=== PATIENT | female | born 1960 | race Two or more races ===

== ENCOUNTER → 2020-05-19 | Emergency (ER) | payer MEDICAID, OTHER ==
[~2020-05-19] VITALS: Ht 175.3 cm; Wt 68.0 kg
[2020-05-19 21:00] VITALS: BP 172/97
[2020-05-19 21:30] LABS: Eosinophils # (auto) 0 10 ^3/uL (0-0.8); Eosinophils % (auto) 0.3 % (0.0-7.0); Hemoglobin 12.8 g/dL (12.2-16.2); Lymphocytes # (auto) 1.1 10 ^3/uL (0.4-5.4); Monocytes # (auto) 0.4 10 ^3/uL (0-1.3); Neutrophils # (auto) 3.8 10 ^3/uL (1.6-8.6)
[2020-05-19 21:32] LABS: Basophils # (auto) 0.1 10 ^3/uL (0-0.2); Hematocrit 39.3 % (36.0-46.0); Lymphocytes % (auto) 20.8 % (10.0-50.0); Mean Corpuscular Hgb Conc. 32.5 g/dL (32.0-36.0); Monocytes % (auto) 6.8 % (0.0-12.0); Neutrophils % (auto) 71.1 % (37.0-80.0); Platelet Count (auto) 167 10^3/uL (140-450); Red Blood Cells 4.91 10^6/uL (4.0-5.20); Red Cell Distribution Width 17.4 % (11.8-14.3); White Blood Cell 5.4 10^3/uL (4.4-10.8)
[2020-05-19 21:44] LABS: Albumin 3.7 g/dL (3.4-5.0); Anion Gap 7 (5-15); Blood Urea Nitrogen 18 mg/dL (7-18); Calcium 10.5 mg/dL (8.5-10.1); Carbon Dioxide 22 mmol/L (21-32); Chloride 111 mmol/L (98-107); Glucose 94 mg/dL (74-106); Magnesium 2.2 mg/dL (1.6-2.6); Potassium 3.6 mmol/L (3.5-5.1); Sodium 140 mmol/L (136-145)
[2020-05-19 21:50] LABS: Alanine Aminotransferase 16 U/L (13-56); Alkaline Phosphatase 101 U/L (45-117); Aspartate Aminotransferase 8 U/L (15-37); BUN/Creatinine Ratio 17.1; Bilirubin, Total 0.3 mg/dL (0.2-1.0); GFR African American 69 mL/min; GFR Non-African American 57 mL/min; Total Protein 7.1 g/dL (6.4-8.2)
[2020-05-19 21:54] LABS: INR 0.92 (0.9-1.15); Partial Thromboplastin Time 25.4 sec (23.0-31.2)
== END | disposition home or self-care (01) ==
LOC: ER 19:02
DX: J01.00 Acute maxillary sinusitis, unspecified (principal); F41.1 Generalized anxiety disorder; F43.0 Acute stress reaction; M25.572 Pain in left ankle and joints of left foot; Z20.828 Contact with and (suspected) exposure to other viral communicable diseases
CPT/HCPCS: 36415; 70450; 71045; 73610; 80053; 83605; 83735; 83880; 84443; 84484; 85025; 85379; 85610; 85730; 87426

== ENCOUNTER 2020-07-08 18:44 | Inpatient (IN) | payer MEDICAID ==
[~2020-07-08] VITALS: Ht 177.8 cm; Wt 77.5 kg
[2020-07-08 21:57] LABS: Basophils # (auto) 0 10 ^3/uL (0-0.2); Basophils % (auto) 0.1 % (0.0-2.0); Eosinophils # (auto) 0 10 ^3/uL (0-0.8); Lymphocytes # (auto) 0.3 10 ^3/uL (0.4-5.4); Mean Corpuscular Hemoglobin 27.1 pg (28.0-32.0)
[2020-07-08 21:59] LABS: Hemoglobin 19.5 g/dL (12.2-16.2); Lymphocytes % (auto) 1.2 % (10.0-50.0); Mean Corpuscular Hgb Conc. 32.1 g/dL (32.0-36.0); Mean Corpuscular Volume 84.3 fL (80.0-100.0); Monocytes # (auto) 1.2 10 ^3/uL (0-1.3); Monocytes % (auto) 5.2 % (0.0-12.0); Neutrophils # (auto) 21.5 10 ^3/uL (1.6-8.6); Neutrophils % (auto) 93.5 % (37.0-80.0); Nucleated Red Blood Cells % 1.3 %; Platelet Count (auto) 179 10^3/uL (140-450); Red Blood Cells 7.22 10^6/uL (4.0-5.20); Red Cell Distribution Width 18.3 % (11.8-14.3)
[2020-07-08] MEDS ORDERED: VANCOMYCIN 1GM/250ML 250 ML IV SCH (22:00)
[2020-07-08] MEDS ORDERED: SODIUM CHLORIDE 0.9% 2,500 ML IV ONE (22:00)
[2020-07-08] MEDS ORDERED: VANCOMYCIN 1GM/250ML 250 ML IV ONE (22:00)
[2020-07-08] MEDS ORDERED: PIPERACILLIN-TAZOB 3.375GM 100 ML IV ONE (22:00)
[2020-07-08 22:07] LABS: Hematocrit 60.9 % (36.0-46.0)
[2020-07-08 22:15] LABS: Albumin 4.1 g/dL (3.4-5.0)
[2020-07-08 22:17] LABS: Lactic Acid w/Reflex 4.4 mmol/L (0.4-2.0)
[2020-07-08 22:19] LABS: BUN/Creatinine Ratio 21.5; Total Protein 8.4 g/dL (6.4-8.2)
[2020-07-08 22:27] LABS: INR 1.12 (0.9-1.15); Partial Thromboplastin Time 24.8 sec (23.0-31.2)
[2020-07-08 22:28] LABS: Calcium 14.5 mg/dL (8.5-10.1); Potassium 2.8 mmol/L (3.5-5.1)
[2020-07-08] MEDS ORDERED: POTASSIUM CHL 20MEQ/100ML 100 ML IV ONE (22:45)
[2020-07-09] VITALS (56 sets, daily range): BP systolic 116–168; BP diastolic 60–132
[2020-07-09] MEDS ORDERED: PIPERACILLIN-TAZOB 3.375GM 100 ML IV SCH
[2020-07-09 00:15] LABS: Urine Bacteria FEW /hpf (None Seen); Urine Blood Negative /uL (Negative); Urine Specific Gravity 1.015 (1.001-1.035); Urine WBC 6 /hpf (0 - 5)
[2020-07-09 02:35] LABS: Amphetamine Screen, Urine NEGATIVE (NEGATIVE); Barbiturate Scree,Urine NEGATIVE (NEGATIVE); Benzodiazephine Screen, Urine NEGATIVE (NEGATIVE); Cannabinoid Screen, Urine NEGATIVE (NEGATIVE); Cocaine Screen, Urine NEGATIVE (NEGATIVE); Opiate Scree,Urine NEGATIVE (NEGATIVE); Phencyclidine Screen, Urine NEGATIVE (NEGATIVE)
[2020-07-09] MEDS ORDERED: D5W/SOD CHL 0.45%/KCL 20MEQ 1,000 ML IV SCH (03:45)
[2020-07-09] MEDS ORDERED: NITROGLYCERIN 0.4 MG SL TAB SL PRN (03:45)
[2020-07-09] MEDS ORDERED: MORPHINE SULF INJ 2 MG/ML SYRINGE 1ML IV PRN (03:45)
[2020-07-09] MEDS ORDERED: VANCOMYCIN PER PHARMACY 0 MG IV SCH (03:45)
[2020-07-09] MEDS ORDERED: SODIUM BICARBONATE 8.4 % INJ 50ML VIAL IV ONE (03:45)
[2020-07-09] MEDS ORDERED: PIPERACILLIN-TAZOB 2.25GM 50 ML IV SCH (06:00)
--- NOTE | 2020-07-09 06:20 | NUR ---
PATIENT BROUGHT TO ROOM 102 FROM ER. INDY RULE OUT. DIAGNOSIS: SEPSIS. AT HOME FAMILY NOTICED HER INCREASE IN ALOC, FATIGUE, POOR APPETITE. IN ER WAS HYPOTENSIVE. SEPSIS PROTOCOL INITIATED. BLOOD SUGAR 124 . JUST TOOK HER ACCUCHECK IT WAS 136. IMMEDIATELY UPON ARRIVAL IV LINES WERE READY TO DELIVER THE BICARB DRIP AT 100CC/HR. KCL REPLACEMENT 20 MEQ ALSO STARTED. NSR WITHOUT ECTOPY. PATIENT'S SPEECH IS GARBLED. UNABLE TO TELL ME HER NAME. CARLOS. DRY LIPS AND MOUTH. LUNGS CLEAR. ON 7L FACE MASK. EXTREMITIES ARE COOL. TEMP 97.6 AX. RIVERO. MRSA SWAB SENT.
[2020-07-09] MEDS: POTASSIUM CHL 20MEQ/100ML 100 ML IV SCH ×2 (06:30→09:34)
--- NOTE | 2020-07-09 06:50 | NUR ---
Respiratory note: HR 92, RR 26, SPO2 98% ON 7 L SIMPLE MASK. PT IS COMFORTABLY. NO SIGNS OR SYMPTOMS OF RESPIRATORY DISTRESS NOTED AT THIS TIME.
--- NOTE | 2020-07-09 07:25 | NUR ---
REPORT REPORT RECEIVED FROM JACQUELINE RN, CARE ASSUMED. PT AWAKE. STUFFED CASING TIER AT BEDSIDE FOR MORNING LABS. VS STABLE.
[2020-07-09] MEDS ORDERED: SODIUM BICARBONATE 50ML VIAL 50 ML in D5W/SOD CHL 0.45%/KCL 20MEQ 1,000 ML IV SCH (07:30)
[2020-07-09 08:00] LABS: Basophils # (auto) 0 10 ^3/uL (0-0.2); Eosinophils # (auto) 0 10 ^3/uL (0-0.8); Hemoglobin 16.7 g/dL (12.2-16.2); Lymphocytes # (auto) 0.3 10 ^3/uL (0.4-5.4)
--- NOTE | 2020-07-09 08:00 | NUR ---
COVID IN-HOUSE COVID SWAB OBTAINED AND WALKED TO LAB.
[2020-07-09 08:02] LABS: Basophils % (auto) 0.2 % (0.0-2.0); Hematocrit 52.2 % (36.0-46.0); Lymphocytes % (auto) 1.6 % (10.0-50.0); Mean Corpuscular Hemoglobin 27.2 pg (28.0-32.0); Mean Corpuscular Volume 85.1 fL (80.0-100.0); Monocytes # (auto) 0.8 10 ^3/uL (0-1.3); Monocytes % (auto) 4.5 % (0.0-12.0); Neutrophils # (auto) 16.9 10 ^3/uL (1.6-8.6); Neutrophils % (auto) 93.7 % (37.0-80.0); Nucleated Red Blood Cells % 0.1 %; Platelet Count (auto) 116 10^3/uL (140-450); Red Blood Cells 6.13 10^6/uL (4.0-5.20); Red Cell Distribution Width 18.4 % (11.8-14.3); White Blood Cell 18.1 10^3/uL (4.4-10.8)
--- NOTE | 2020-07-09 08:10 | NUR ---
OXYGENATION PATIENT MAINTAINING 100% OXYGEN SATURATION ON SIMPLE MASK 8L. PT PLACED ON 3L NASAL CANNULA. OXYGEN SATURATION MAINTAINING 100%. NO DISTRESS OR SHORTNESS OF BREATH NOTED.
[2020-07-09 08:17] LABS: Albumin 3.2 g/dL (3.4-5.0); Potassium 3.5 mmol/L (3.5-5.1)
[2020-07-09 08:22] LABS: BUN/Creatinine Ratio 22.4; Bilirubin, Total 0.9 mg/dL (0.2-1.0); Total Protein 6.1 g/dL (6.4-8.2)
[2020-07-09 08:25] LABS: Calcium 13.3 mg/dL (8.5-10.1)
[2020-07-09] MEDS ORDERED: HYDR-4296 PO (08:30)
[2020-07-09] MEDS ORDERED: NIFE1TAB30 PO (08:30)
[2020-07-09] MEDS ORDERED: ATOR40TA52 PO (08:30)
[2020-07-09] MEDS ORDERED: PANT1INJ3 IV (08:30)
[2020-07-09] MEDS ORDERED: CLOP75TA41 PO (08:30)
[2020-07-09] MEDS ORDERED: CINA30TA2 PO (08:30)
[2020-07-09] MEDS: metroNIDAZOLE 500MG/100ML 100 ML IV SCH ×3 (08:46→22:03)
--- NOTE | 2020-07-09 09:20 | NUR ---
MD VISIT DR.SANDHU FLORES AT BEDSIDE. MD REVIEWING LABS, IMAGING, AND MEDICAL RECORD.
[2020-07-09] MEDS: PIPERACILLIN-TAZOB 2.25GM 50 ML IV SCH ×3 (09:56→23:58)
[2020-07-09] MEDS ORDERED: CLOPIDOGREL BISULFATE 75 MG TAB PO SCH (10:00)
[2020-07-09] MEDS: NIFEdipine ER 30 MG TAB PO SCH (10:00)
[2020-07-09] MEDS ORDERED: CHOLECALCIFEROL (VITD3) 2,000 UNIT CAP PO SCH (10:00)
[2020-07-09] MEDS ORDERED: PANTOPRAZOLE 40 MG TAB PO SCH (10:00)
--- NOTE | 2020-07-09 10:40 | NUR ---
PO MEDICATIONS PATIENT WAS ABLE TO TO TOLERATE APPLE SAUCE AND WATER WITH SWALLOWING. PT REQUIRED A LOT OF INSTRUCTION TO SWALLOW MEDICATION. PT KEPT ATTEMPTING TO SPIT OUT APPLE SAUCE OR JUST LET IT SIT INSIDE HER MOUTH. EVENTUALLY SHE SWALLOWED CRUSHED MEDICATION. PROTONIX, NICARDIPINE, AND PLAVIX HELD AT THIS TIME DUE TO MEDICATION NOT BEING ABLE TO BE CRUSHED. PT CONTINUES TO HAVE GARBLED SPEECH THAT IS NOT CLEAR.
[2020-07-09] MEDS: hydrALAZINE HCL 25 MG TAB PO SCH (10:41)
[2020-07-09] MEDS: ASPirin 81 mg TAB PO SCH (10:41)
[2020-07-09] MEDS: HEPARIN SODIUM (PORCINE) 5000 UNITS/ML 1ML VIAL SC SCH ×2 (10:42→22:06)
--- NOTE | 2020-07-09 11:04 | NUR ---
ISOLATION REMOVED COVID SWAB RESULT NEGATIVE. ISOLATION REMOVED.
--- NOTE | 2020-07-09 11:28 | NUR ---
GI CONSULT DR.LIN FLORES AT BEDSIDE. ASSESSING PATIENT. NEW ORDERS RECEIVED.
[2020-07-09] MEDS ORDERED: PANTOPRAZOLE 40 MG/10 ML VIAL INJ IV ONE (11:30)
[2020-07-09] MEDS ORDERED: SOD CHL 0.45% 1,000 ML IV SCH (11:45)
[2020-07-09] MEDS ORDERED: D5W 5% 1,000 ML IV SCH ×2 (12:00)
--- NOTE | 2020-07-09 12:08 | NUR ---
NEPHROLOGY CONSULT SPOKE WITH ON THE PHONE REGARDING PATIENT STATUS, LABS, AND URINE OUTPUT. NEW ORDERS RECEIVED. LAB NOTIFIED OF LAB DRAW ORDERED. MD TO BE NOTIFIED IF URINE OUTPUT REMAINS LOW OVER THE NEXT HOUR.
[2020-07-09] MEDS: CALCITONIN 400unit/2ml Vial (200unit/ml) SC SCH ×2 (12:32→22:10)
--- NOTE | 2020-07-09 13:03 | NUR ---
CARDIOLOGY CONSULT ROUNDING ON PATIENT. MD AWARE OF EKG, LABS, AND IMAGINING. NEW ORDERS RECEIVED.
[2020-07-09 13:41] LABS: Basophils % (manual) 0 (0.0-2.0); Blast Cells 0; Eosinophils % (manual) 0 (0-7); Myelocytes % 0; Promyelocytes % 0; Reactive Lymphocytes 0
--- NOTE | 2020-07-09 13:49 | NUR ---
NEPHROLOGY PAGED PAGED REGARDING CONTINUED LOW URINE OUTPUT. GEORGE CATHETER MANUALLY FLUSHED TO ENSURE PATENCY. AWAITING CALL BACK FOR ORDERS.
[2020-07-09 13:57] LABS: BUN/Creatinine Ratio 21.8; Potassium 4.1 mmol/L (3.5-5.1)
[2020-07-09 13:59] LABS: Calcium 13.5 mg/dL (8.5-10.1)
--- NOTE | 2020-07-09 14:20 | NUR ---
NEPHRO UPDATE SPOKE WITH REGARDING NEW LABS AND URINE OUTPUT. NEW ORDERS RECEIVED FOR LASIX.
--- NOTE | 2020-07-09 14:25 | NUR ---
ONCOLOGY/HEMATOLOGY CONSULT KEVIN CUADRA CHEMICAL WASTE MANAGEMENT TECHNICIAN CONSULTING ON PATIENT. AWARE OF LABS, PAST MEDICAL HISTORY, AND MEDICATIONS. CHEMICAL WASTE MANAGEMENT TECHNICIAN AT BEDSIDE TO ASSESS PATIENT.
[2020-07-09] MEDS ORDERED: FUROSEMIDE 100 MG/10ML VIAL IV ONE (14:30)
--- NOTE | 2020-07-09 14:46 | NUR ---
SKIN DISCOLORATION MOTTLING/BLANCHING ON FEET AND TOES HAVE INCREASED. LOWER EXTREMITIES OFF LOADED ON PILLOWS. PT EDUCATED ON IMPORTANCE OF KEEPING EXTREMITIES ELEVATED AND PRESSURE DECREASED.
[2020-07-09 14:50] LABS: Band Neutrophils % (manual) 20; Lymphocytes % (manual) 1 (10.0-50.0); Metamyelocytes % 1; Monocytes % (manual) 1 (0-12)
--- NOTE | 2020-07-09 15:22 | NUR ---
NEUROLOGY CONSULT ASSESSING PATIENT AT BEDSIDE.
--- NOTE | 2020-07-09 15:40 | NUR ---
LOW URINE OUTPUT DESPITE ADMINISTRATION OF LASIX IV, PATIENT HAS NOT HAD AN INCREASE IN URINE OUTPUT. MANUAL IRRIGATION PERFORMED, GEORGE PATENT, NO SEDIMENT NOTED. ASSESSED PROPER POSITIONING OF GEORGE. SMALL AMOUNT OF URINE LEAKING AROUND GEORGE WHEN TRYING TO ADVANCE. PATIENT COMPLAINS OF DISCOMFORT UPON PALPATION OF PELVIC REGION. OLD GEORGE REMOVED, TIP INTACT NOT OCCLUDED. NEW 16 NEPALI GEORGE PLACED WITH CLEAN STERILE TECHNIQUE. PT TOLERATED WELL. NO URINE OUTPUT NOTED. MANUAL FLUSH PERFORMED. PATENT, PT DENIES DISCOMFORT. BLADDER SCANNER PERFORMED. NO VOLUME DETECTED.
[2020-07-09 15:57] LABS: Platelet Count (auto) 113 10^3/uL (140-450)
--- NOTE | 2020-07-09 16:00 | NUR ---
WOUND PHOTO'S PHOTOGRAPHS TAKEN OF SKIN DISCOLORATION.
--- NOTE | 2020-07-09 17:06 | NUR ---
NEPHROLOGY UPDATE NOTIFIED OF LOW URINE OUTPUT. NEW ORDERS RECEIVED. MD REQUESTING OR OTHER AVAILABLE MD TO PLACE DIALYSIS CATHETER.
--- NOTE | 2020-07-09 17:18 | NUR ---
CONSENT DIALYSIS CATHETER PLACEMENT CONSENT OBTAINED FROM SON. PLACED IN CHART.
--- NOTE | 2020-07-09 17:37 | NUR ---
IV INSERTION IV access obtained, via clean sterile technique by inserting 20 gauge catheter at right forearm after 1 attempt. IV secured properly. No trauma to site. Patient tolerated well.
[2020-07-09] MEDS: FUROSEMIDE INJECTION 100 MG in D5W 5% 100 ML IV SCH (17:44)
[2020-07-09] MEDS: D5W/SOD CHL 0.45% 1,000 ML IV SCH (17:44)
[2020-07-09 18:47] LABS: Calcium 12.8 mg/dL (8.5-10.1); Magnesium 2.7 mg/dL (1.6-2.6)
[2020-07-09 18:49] LABS: Phosphorus 3.4 mg/dL (2.5-4.90)
[2020-07-09 18:52] LABS: Lactic Acid w/Reflex 2.4 mmol/L (0.4-2.0)
--- NOTE | 2020-07-09 19:39 | NUR ---
REPORT REPORT GIVEN TO DIONY MONCADA, CARE ENDORSED. VS STABLE. PT RESTING WITH CALL LIGHT WITHIN REACH.
--- NOTE | 2020-07-09 20:56 | NUR ---
PT HAD EPISODE OF VOMITING. PLACED PT IN HIGH FOWLERS AND SUCTIONED MODERATE AMOUNT OF BILE CONTENTS FROM MOUTH. NO S/S OF ASPIRATION PRESENT- LUNGS ARE CLEAR TO AUSCULTATION AND VSS.
--- NOTE | 2020-07-09 21:30 | NUR ---
MD CALL MD PAGED TO MAKE HIM AWARE OF PTS INCREASED HR, AND S/S OF PAIN PRESENT- PT GROANS, GUARDS ABDOMEN, AND THOUGH SHE IS STILL ALTERED, DOES SAY "YES" WHEN ASKED IF SHE IS HAVING ANY PAIN. AWAITING CALLBACK. PT REPOSITIONED FOR COMFORT WITH PILLOWS AND ALL EXTREMITIES OFFLOADED WITH PILLOWS.
--- NOTE | 2020-07-09 21:36 | NUR ---
RETURNED CALL. NEW ORDERS RECEIVED. WILL PLACE AND ADMINISTER.
[2020-07-09] MEDS: ATORVASTATIN 20 MG TAB PO SCH (22:00)
[2020-07-09] MEDS ORDERED: PANTOPRAZOLE 40 MG/10 ML VIAL INJ IV SCH (22:00)
[2020-07-09] MEDS: PANTOPRAZOLE 40 MG/10 ML VIAL INJ IV SCH (22:03)
[2020-07-09] MEDS ORDERED: ACETAMINOPHEN 650 MG RECT SUPP PR ONE (22:14)
[2020-07-09] MEDS: ACETAMINOPHEN 325 MG RECT SUPP PR PRN (22:26)
[2020-07-10] VITALS (74 sets, daily range): BP systolic 90–160; BP diastolic 64–121
[2020-07-10] MEDS: D5W/SOD CHL 0.45% 1,000 ML IV SCH ×4 (01:05→20:49)
[2020-07-10] MEDS: FUROSEMIDE INJECTION 100 MG in D5W 5% 100 ML IV SCH (01:06)
--- NOTE | 2020-07-10 03:32 | NUR ---
PT CARE GAVE PT CHG BATH AND PARTIAL ROC CHANGE. ANA MARIA CARE DONE. PT TURNED AND REPOSITIONED FOR COMFORT.
[2020-07-10 04:05] LABS: Basophils # (auto) 0 10 ^3/uL (0-0.2); Eosinophils # (auto) 0 10 ^3/uL (0-0.8); Hematocrit 43.4 % (36.0-46.0); Hemoglobin 14.6 g/dL (12.2-16.2); Lymphocytes # (auto) 0.2 10 ^3/uL (0.4-5.4); Lymphocytes % (auto) 1.8 % (10.0-50.0); Mean Corpuscular Hemoglobin 27.9 pg (28.0-32.0); Mean Corpuscular Hgb Conc. 33.6 g/dL (32.0-36.0); Mean Corpuscular Volume 83.2 fL (80.0-100.0); Monocytes # (auto) 0.5 10 ^3/uL (0-1.3); Monocytes % (auto) 3.9 % (0.0-12.0); Neutrophils # (auto) 12.7 10 ^3/uL (1.6-8.6); Neutrophils % (auto) 94.3 % (37.0-80.0); Platelet Count (auto) 88 10^3/uL (140-450); Red Blood Cells 5.22 10^6/uL (4.0-5.20); Red Cell Distribution Width 18.5 % (11.8-14.3); White Blood Cell 13.5 10^3/uL (4.4-10.8)
[2020-07-10 04:20] LABS: Albumin 2.5 g/dL (3.4-5.0); Calcium 12.2 mg/dL (8.5-10.1); Potassium 3.6 mmol/L (3.5-5.1)
[2020-07-10 04:23] LABS: BUN/Creatinine Ratio 21.4; Bilirubin, Total 0.7 mg/dL (0.2-1.0); Total Protein 5.7 g/dL (6.4-8.2)
[2020-07-10] MEDS: metroNIDAZOLE 500MG/100ML 100 ML IV SCH ×3 (05:28→17:36)
--- NOTE | 2020-07-10 06:19 | NUR ---
URINE OUTPUT PT HAD A TOTAL OF 675 ML OF URINE OUT OF GEORGE CATHETER THIS SHIFT. HOURLY OUTPUTS ARE DOCUMENTED IN INTAKE AND OUTPUT INTERVENTION. MD PEREZ PLACED COMMUNICATION ORDER STATING TO DISCONTINUE LASIX GTT IF UO INCREASES ABOVE 75 ML/HR. WILL HOLD LASIX GTT FOR INCREASING UO.
[2020-07-10] MEDS: PIPERACILLIN-TAZOB 2.25GM 50 ML IV SCH ×3 (06:29→21:58)
[2020-07-10] MEDS ORDERED: FUROSEMIDE 100 MG/10ML VIAL IV ONE (07:00)
--- NOTE | 2020-07-10 07:00 | NUR ---
Opening note assumed care of patient at this time. Report received from rn shift mgr RN. POC reviewed. Head to toe assessment complete, see intervention spreadsheet for complete details. Received pt awake, responsive to voice. PT does not respond appropriately. PT complaining of pain but cannot specify where or how much. Pt does not follow commands or track properly. IV site is CDI, crain draining to gravity. Bed locked and in lowest position, safety precautions in place. Call light within reach. Will monitor pt carefully.
[2020-07-10] MEDS: ACETAMINOPHEN 325 MG RECT SUPP PR PRN (08:24)
--- NOTE | 2020-07-10 08:29 | NUR ---
Pain Tylenol suppository given for pain. Pt verbalized pain, will assess for pt outcomes.
--- NOTE | 2020-07-10 09:26 | NUR ---
EEG sr technical sales consultant at bedside, attempt to do EEG at this time.
[2020-07-10 09:30] LABS: Folate (Folic Acid) 6.36 ng/mL (5.38-24)
--- NOTE | 2020-07-10 09:46 | NUR ---
Dr stahl Notified of MD order for dialysis catheter placement. Spoke with Michelle in Er.
[2020-07-10] MEDS: ASPirin 81 mg TAB PO SCH (10:00)
[2020-07-10] MEDS: NIFEdipine ER 30 MG TAB PO SCH (10:00)
[2020-07-10] MEDS: hydrALAZINE HCL 25 MG TAB PO SCH (10:00)
[2020-07-10] MEDS: HEPARIN SODIUM (PORCINE) 5000 UNITS/ML 1ML VIAL SC SCH ×2 (10:00→21:50)
[2020-07-10] MEDS: PANTOPRAZOLE 40 MG/10 ML VIAL INJ IV SCH ×2 (10:23→21:58)
--- NOTE | 2020-07-10 10:26 | NUR ---
EEG-ELECTROENCEPHALOGRAM COMPLETED AT BEDSIDE @ 10:14. RN AWARE.
--- NOTE | 2020-07-10 10:34 | NUR ---
at bedside Dr Ames at bedside to assess pt. See md note.
[2020-07-10] MEDS ORDERED: SODIUM CHL 0.9% 1000 ML BAG XX ONE (11:15)
[2020-07-10] MEDS ORDERED: HEPARIN SODIUM (PORCINE) 5000 UNITS/ML 1ML VIAL IV ONE (11:15)
[2020-07-10] MEDS: CALCITONIN 400unit/2ml Vial (200unit/ml) SC SCH ×3 (11:40→22:45)
--- NOTE | 2020-07-10 11:53 | NUR ---
Dr. nSow at bedside for dialysis catheter placement. american history professor at bedside
[2020-07-10] MEDS ORDERED: ALBUMIN 5% 250 ML IV ONE (12:15)
[2020-07-10] MEDS ORDERED: SODIUM CHLORIDE 0.9% 1,000 ML IV ONE (12:15)
--- NOTE | 2020-07-10 12:55 | NUR ---
Oxygen Pt oxygen decreased while receiving dialysis. Pt placed on 2lts NC. saturation came up from 88% to 98% at this time. Will continue to monitor closely.
[2020-07-10 16:27] LABS: BUN/Creatinine Ratio 20.8; Calcium 10.4 mg/dL (8.5-10.1); Potassium 3.1 mmol/L (3.5-5.1)
--- NOTE | 2020-07-10 16:32 | NUR ---
at bedside Dr Segundo at bedside. Orders received for PICC line placement for TPN. Will obtain consent and notify PICC line RN.
--- NOTE | 2020-07-10 16:36 | NUR ---
Consent Call placed to patient's son Remus to obtain consent. No answer at this time. No voicemail box available. WIll try again.
[2020-07-10 17:37] LABS: Hepatitis A Ab IgM Negative; Hepatitis B Core IgM Negative; Hepatitis B Surface Antigen Negative (Negative); Hepatitis C Antibody Negative (Negative)
--- NOTE | 2020-07-10 19:22 | NUR ---
Diet tolerance Pt having hard time eating served trays. Pt has full upper dentures. Pt offered jello d/t observed difficulty with eating. PT ate jello and tolerated well. Addendum: 07/10/20 at 2055 by DIONY TIDWELL RN THIS PT REMAINS NPO FOR SAFETY. POSSIBLE PREVIOUS RN CHARTED ON WRONG PT.
[2020-07-10] MEDS ORDERED: VANCOMYCIN 1GM/250ML 250 ML IV ONE (20:00)
--- NOTE | 2020-07-10 20:21 | NUR ---
PTS BOYFRIEND, CLEOPATRA MIMS, CALLED UNIT. UNABLE TO GIVE PT INFORMATION DUE TO HIM NOT HAVING PASSWORD. ENCOURAGED HIM TO SPEAK WITH REMUS, PTS SON FOR MORE INFORMATION AND TO CALLBACK WITH PASSWORD IF HE HAS ANY QUESTIONS/CONCERNS.
[2020-07-10] MEDS: ATORVASTATIN 20 MG TAB PO SCH (21:58)
--- NOTE | 2020-07-10 22:02 | NUR ---
CALLED PHARMACY TO REQUEST PTS LAST DOSE OF CALCITONIN, IT WAS NOT IN THE REFRIGERATOR. AWAITING MEDICATION.
--- NOTE | 2020-07-10 23:34 | NUR ---
CALCITONIN NON ADMIN PHARMACY DID NOT SEND MEDICATION. WILL MAKE MD AWARE
[2020-07-11] VITALS (22 sets, daily range): BP systolic 89–113; BP diastolic 57–85
[2020-07-11] MEDS: metroNIDAZOLE 500MG/100ML 100 ML IV SCH ×3 (01:16→16:45)
[2020-07-11 03:36] LABS: Basophils # (auto) 0 10 ^3/uL (0-0.2); Eosinophils # (auto) 0 10 ^3/uL (0-0.8); Hematocrit 38.5 % (36.0-46.0); Hemoglobin 13.1 g/dL (12.2-16.2); Lymphocytes # (auto) 0.4 10 ^3/uL (0.4-5.4); Mean Corpuscular Hemoglobin 27.9 pg (28.0-32.0); Mean Corpuscular Hgb Conc. 33.9 g/dL (32.0-36.0); Mean Corpuscular Volume 82.1 fL (80.0-100.0); Monocytes # (auto) 0.4 10 ^3/uL (0-1.3); Monocytes % (auto) 3.9 % (0.0-12.0); Neutrophils # (auto) 9.1 10 ^3/uL (1.6-8.6); Neutrophils % (auto) 92.1 % (37.0-80.0); Nucleated Red Blood Cells % 0.1 %; Platelet Count (auto) 75 10^3/uL (140-450); Red Blood Cells 4.69 10^6/uL (4.0-5.20); Red Cell Distribution Width 18.2 % (11.8-14.3); White Blood Cell 9.9 10^3/uL (4.4-10.8)
[2020-07-11 03:53] LABS: INR 1.09 (0.9-1.15); Partial Thromboplastin Time 33.4 sec (23.0-31.2)
[2020-07-11 03:56] LABS: Albumin 2.1 g/dL (3.4-5.0); Calcium 10.1 mg/dL (8.5-10.1)
[2020-07-11 03:59] LABS: BUN/Creatinine Ratio 21.1; Bilirubin, Total 0.7 mg/dL (0.2-1.0); Lactic Acid w/Reflex 2.2 mmol/L (0.4-2.0); Total Protein 5.3 g/dL (6.4-8.2)
[2020-07-11 04:05] LABS: Potassium 2.7 mmol/L (3.5-5.1)
[2020-07-11] MEDS: D5W/SOD CHL 0.45% 1,000 ML IV SCH ×3 (04:06→20:00)
--- NOTE | 2020-07-11 05:16 | NUR ---
NEPHROLOGY PAGED FOR CRITICAL POTASSIUM OF 2.7. AWAITING CALLBACK.
[2020-07-11] MEDS: PIPERACILLIN-TAZOB 2.25GM 50 ML IV SCH ×2 (05:39→14:03)
--- NOTE | 2020-07-11 06:21 | NUR ---
ATTEMPTED TO CALL KARY RIOS AT PHONE NUMBER [phone]. NO EXTRACTOR PULLER AND NO VOICEMAIL SET UP TO LEAVE MESSAGE. Addendum: 07/11/20 at 0640 by DIONY TIDWELL RN ATTEMPTED TO CALL TO GET CONSENT FOR PICC LINE PLACEMENT
--- NOTE | 2020-07-11 06:26 | NUR ---
ERROL BRIGHT. STILL AWAITING CALLBACK.
[2020-07-11 08:06] LABS: Immunoglobulin G, Serum 880 mg/dL (586-1602)
[2020-07-11] MEDS: POTASSIUM CHL 20MEQ/100ML 100 ML IV SCH ×2 (08:14→10:35)
[2020-07-11] MEDS ORDERED: LORazepam 2MG/ML-1ML VIAL IV PRN (08:15)
--- NOTE | 2020-07-11 08:52 | NUR ---
PICC AND MRI CONSENT OBTAINED FROM SON KARY SAGE AND CONFIRMED WITH CORAL BROOKS. ALL QUESTIONS AND CONCERNS ADDRESSED AT THIS TIME
--- NOTE | 2020-07-11 09:21 | NUR ---
DR. OCONNOR AT BEDSIDE
[2020-07-11] MEDS: PANTOPRAZOLE 40 MG/10 ML VIAL INJ IV SCH ×2 (09:27→22:32)
[2020-07-11] MEDS: ASPirin 81 mg TAB PO SCH (09:27)
[2020-07-11] MEDS: hydrALAZINE HCL 25 MG TAB PO SCH (09:27)
[2020-07-11] MEDS: NIFEdipine ER 30 MG TAB PO SCH (09:28)
[2020-07-11] MEDS: HEPARIN SODIUM (PORCINE) 5000 UNITS/ML 1ML VIAL SC SCH ×2 (10:00→22:00)
--- NOTE | 2020-07-11 10:44 | NUR ---
DR. PEREZ AT BEDSIDE
--- NOTE | 2020-07-11 10:54 | NUR ---
SWALLOW EVALUATED. PATIENT HAS NATURAL TEETH. ABLE TO FOLLOW ONE STEP COMMANDS. NURSING REPORTS COUGHING ON THIN LIQUIDS. PATIENT ABLE TO TOLERATE PUREE DIET TEXTURE WITH NECTAR THICKENED LIQUIDS WITH NO OVERT SIGNS OR SYMPTOMS OF ASPIRATION. NURSING NOTIFIED.
--- NOTE | 2020-07-11 11:11 | NUR ---
PICC NURSE AT BEDSIDE
--- NOTE | 2020-07-11 11:28 | NUR ---
DR. MARX PAGED AWAITING CALLBACK
--- NOTE | 2020-07-11 11:51 | NUR ---
BRAIN MRI ON HOLD DUE TO ARTIFACT THAT WILL OCCUR WITH THE DIALYSIS CATHETER IN PLACE. DR. MARX AWARE
--- NOTE | 2020-07-11 12:07 | NUR ---
PICC line placement Patient SON educated on need for PICC line placement. All risks and benefits explained and all questions and concerns addressed prior to procedure. Noted past medical history and allergies with no contraindications. INR and Plt counts within acceptable range. 5 fr PICC line inserted via RIGHT BASILIC vein using [employer] US and Tip Location System. Sterile technique with maximum barrier precautions utilized. Blood return obtained from each of THE THREE lumens and each flushed easily with NS using proper technique. PICC secured with Stat-lock; biodisc and occlusive dressing applied. Stat portable chest x-ray obtained for PICC tip placement. PRIMARY RN MELINDA NOTIFIED OF PLACEMENT. *Baseline Arm Circumference 26 CM INTERNAL LENGTH 40 CM EXTERNAL LENGTH 0 CM PICC lot # [id number]
--- NOTE | 2020-07-11 12:14 | NUR ---
OK to use PICC line Xray completed. OK to use PICC line. PRIMARY RN MELINDA NOTIFIED.
[2020-07-11] MEDS ORDERED: LIDOCAINE 1% (LOCAL ANESTH.) PF 5ml SDV ID ONE (12:15)
--- NOTE | 2020-07-11 15:01 | NUR ---
HEPARIN HELD PER DR. BHATIA, CHECK CBC TOMORROW AND CHANGE IN ANTIBIOTIC THERAPY.
[2020-07-11] MEDS: cefTRIAXone 1GM/50ML D5W 50 ML IV SCH (15:23)
--- NOTE | 2020-07-11 15:23 | NUR ---
ECHO AT BEDSIDE
[2020-07-11] MEDS ORDERED: TPN PER PHARMACY 0 ML IV SCH (16:30)
--- NOTE | 2020-07-11 16:37 | NUR ---
PATIENT TAKEN TO NUCLEAR MEDICINE BY TOM BAILEY RN VIA ACLS GUIDELINES
[2020-07-11] MEDS ORDERED: D5W/SOD CHL 0.45% 1,000 ML IV SCH (16:45)
[2020-07-11] MEDS ORDERED: CYANOCOBALAMIN (B-12) 1000 MCG/1 ML VIAL IM ONE (17:00)
--- NOTE | 2020-07-11 19:30 | NUR ---
Opening Shift note Received report from day shift RN Umair. Pt brought in by EMS on 07/08 due to ALOC and poor appetite. Per reports, pt is talkative at baseline but has been progressively unverbal the past few days before she was brought into the hospital. Pt was diagnosed with sepsis and admitted to the ICU. Pertinent PMH includes MS, Stroke (8 months ago), HTN, DM, hyperparathyroid. Pt's head CT on 07/08 showed "chronic lacunar infarcts right basal ganglia and right paracentral posterior midbrain". Currently, patient is AAOx1. Could not assess orientation further due to the patients speech being slurred and unclear. Pt is able to verbalize yes, no, and okay. Pt has a crain that is patent, hung below the level of the bladder, and draining clear yellow urine. Right IJ Loc dressing is clean and intact. Pt oriented to staff and POC. Bed is locked at lowest position, side rails are up, call light placed within reach. No s/s of distress noted at this time, VSS. Pt denies any pain. Will continue to monitor.
--- NOTE | 2020-07-11 19:40 | NUR ---
Pt taken to Nuclear Medicine Folloing ACLS guidelines by primary CORAL Singh & assistant professor of communicationCORAL Solares.
[2020-07-11] MEDS ORDERED: CLINIMIX PER PHARMACY IV SCH (20:00)
--- NOTE | 2020-07-11 20:41 | NUR ---
Pt back from Nuclear Medicine Pt tolerated well, pt connected to ICU bedside monitor, all VSS. Will continue to monitor.
--- NOTE | 2020-07-11 22:00 | NUR ---
Cooling measures started Pt's temperature is 99.7, cooling measures started. Will continue to monitor.
[2020-07-11] MEDS ORDERED: ACETAMINOPHEN 650 MG RECT SUPP PR ONE (22:09)
[2020-07-11] MEDS: SODIUM CHLOR 0.9% PF (SALINE LOCK) 10ML VIAL/SYR IV SCH (22:32)
[2020-07-11] MEDS: ATORVASTATIN 20 MG TAB PO SCH (22:32)
[2020-07-11] MEDS: ACETAMINOPHEN 325 MG RECT SUPP PR PRN (22:33)
[2020-07-12] VITALS (10 sets, daily range): BP systolic 91–133; BP diastolic 63–81
[2020-07-12] MEDS: metroNIDAZOLE 500MG/100ML 100 ML IV SCH ×3 (01:03→16:43)
--- NOTE | 2020-07-12 02:55 | NUR ---
Report given to Neyda MONCADA All questions and concerns addressed.
--- NOTE | 2020-07-12 03:02 | NUR ---
ICU patient trans to floor SBAR given to Neyda MONCADA. JENNIFER ESTEBAN transfered to 218b via hospital bed on milk truck driver by elijah MONCADA. All patient's personal belongings transfered with patient to receiving floor. Patient care transfered to Neyda MONCADA
--- NOTE | 2020-07-12 03:10 | NUR ---
RECEIVED PT. FROM ICU, AWAKE, ORIENTED X1, V/S STABLE, TO CONTINUE PT. CARE.
[2020-07-12 06:49] LABS: Basophils # (auto) 0 10 ^3/uL (0-0.2); Eosinophils # (auto) 0 10 ^3/uL (0-0.8); Hematocrit 41.1 % (36.0-46.0); Hemoglobin 13.6 g/dL (12.2-16.2); Lymphocytes # (auto) 0.3 10 ^3/uL (0.4-5.4); Lymphocytes % (auto) 4.1 % (10.0-50.0); Mean Corpuscular Hemoglobin 27.4 pg (28.0-32.0); Mean Corpuscular Hgb Conc. 33.1 g/dL (32.0-36.0); Mean Corpuscular Volume 82.9 fL (80.0-100.0); Monocytes # (auto) 0.4 10 ^3/uL (0-1.3); Monocytes % (auto) 4.8 % (0.0-12.0); Neutrophils # (auto) 7.1 10 ^3/uL (1.6-8.6); Neutrophils % (auto) 91.1 % (37.0-80.0); Nucleated Red Blood Cells % 0.1 %; Platelet Count (auto) 83 10^3/uL (140-450); Red Blood Cells 4.95 10^6/uL (4.0-5.20); Red Cell Distribution Width 18.5 % (11.8-14.3); White Blood Cell 7.8 10^3/uL (4.4-10.8)
[2020-07-12] MEDS ORDERED: SODIUM CHL 0.9% 1000 ML BAG XX ONE (07:00)
--- NOTE | 2020-07-12 07:10 | NUR ---
OPENING SHIFT NOTE Assumed care of patient from social service agency director RN. Patient is alert and oriented x2, patient was reoriented to place and situation, no signs of distress noted, patient denies pain. She was updated on the plan of care and verbalized understanding. She has a crain placed, draining clear yellow urine to gravity, no kinks and tubing noted. Bed is locked, in the lowest position, side rails are up x2 and call light is in reach. Patient was encouraged to call for assistance as needed.
[2020-07-12 07:11] LABS: Albumin 2.1 g/dL (3.4-5.0); BUN/Creatinine Ratio 26.1; Bilirubin, Total 0.6 mg/dL (0.2-1.0); Calcium 10.2 mg/dL (8.5-10.1); Magnesium 1.7 mg/dL (1.6-2.6); Phosphorus 2.6 mg/dL (2.5-4.90); Total Protein 5.4 g/dL (6.4-8.2)
[2020-07-12 07:13] LABS: % Iron Saturation 53.2 % (15-50)
[2020-07-12 07:44] LABS: Potassium 2.7 mmol/L (3.5-5.1)
--- NOTE | 2020-07-12 07:46 | NUR ---
POTASSIUM 2.7 Ratna made aware, New orders received for K Missael 40meq IV. Orders read back and verified.
[2020-07-12] MEDS: POTASSIUM CHL 20MEQ/100ML 100 ML IV SCH ×2 (08:12→10:42)
[2020-07-12] MEDS: cefTRIAXone 1GM/50ML D5W 50 ML IV SCH (08:34)
--- NOTE | 2020-07-12 09:13 | NUR ---
PATIENT TAKEN TO CT accompanied by tech, no signs of distress noted.
--- NOTE | 2020-07-12 09:24 | NUR ---
PATIENT BACK FROM CT no signs of distress.
--- NOTE | 2020-07-12 09:28 | NUR ---
ANASTASIA AT BEDSIDE Updated on the patient status, Patient was updated on the plan of care and verbalized understanding. New orders for stool sample.
[2020-07-12 09:29] LABS: Pre Albumin 14.8 mg/dL (20.0-40.0)
[2020-07-12] MEDS: SODIUM CHLOR 0.9% PF (SALINE LOCK) 10ML VIAL/SYR IV SCH ×2 (09:56→21:42)
[2020-07-12] MEDS: PANTOPRAZOLE 40 MG/10 ML VIAL INJ IV SCH ×2 (09:56→21:42)
[2020-07-12] MEDS: ASPirin 81 mg TAB PO SCH (09:56)
[2020-07-12] MEDS: NIFEdipine ER 30 MG TAB PO SCH (09:57)
[2020-07-12] MEDS: CYANOCOBALAMIN 500 MCG TAB PO SCH (09:57)
[2020-07-12] MEDS: hydrALAZINE HCL 25 MG TAB PO SCH (09:57)
[2020-07-12] MEDS: HEPARIN SODIUM (PORCINE) 5000 UNITS/ML 1ML VIAL SC SCH ×2 (09:58→21:43)
[2020-07-12] MEDS: D5W/SOD CHL 0.45% 1,000 ML IV SCH (11:24)
[2020-07-12] MEDS ORDERED: DEXTROSE (50%) 50ML SYRG IV SCH (12:00)
[2020-07-12] MEDS: ACCU-CHEK COMFORT CURVE STRIP VI SCH ×3 (12:01→23:20)
[2020-07-12] MEDS: InsuLIN REG 1unit/0.01ml Soln (100units/ml) SC SCH ×3 (12:09→23:19)
--- NOTE | 2020-07-12 15:53 | NUR ---
Nutrition Assessment/Consult Notes Please refer to link for full assessment notes. Est Energy needs: 3059-4889 kcals (20-23 kcal/kgBW) Est Protein needs: 64-72 gms/day (0.8-0.9 gm/kgBW) Will continue to monitor and reassess prn. Addendum: 07/12/20 at [address] Amended: Links added.
[2020-07-12] MEDS: ACETAMINOPHEN 325 MG RECT SUPP PR PRN (16:12)
--- NOTE | 2020-07-12 19:30 | NUR ---
assumed care, pt. awake, oriented to self, not in distress.
[2020-07-12] MEDS ORDERED: TPN PER PHARMACY IV NR ×8 (20:00)
[2020-07-12] MEDS: ATORVASTATIN 20 MG TAB PO SCH (21:42)
[2020-07-13] MEDS: metroNIDAZOLE 500MG/100ML 100 ML IV SCH ×3 (00:36→17:27)
[2020-07-13] MEDS: D5W/SOD CHL 0.45% 1,000 ML IV SCH (02:48)
[2020-07-13 05:00] VITALS: BP 115/71
[2020-07-13] MEDS: InsuLIN REG 1unit/0.01ml Soln (100units/ml) SC SCH ×3 (06:00→17:44)
[2020-07-13] MEDS: ACCU-CHEK COMFORT CURVE STRIP VI SCH ×3 (06:04→17:27)
[2020-07-13 06:49] LABS: Basophils # (auto) 0 10 ^3/uL (0-0.2); Eosinophils # (auto) 0 10 ^3/uL (0-0.8); Eosinophils % (auto) 0.1 % (0.0-7.0); Hematocrit 38.8 % (36.0-46.0); Lymphocytes # (auto) 0.4 10 ^3/uL (0.4-5.4); Lymphocytes % (auto) 6.1 % (10.0-50.0); Mean Corpuscular Hemoglobin 27.9 pg (28.0-32.0); Mean Corpuscular Hgb Conc. 33.6 g/dL (32.0-36.0); Mean Corpuscular Volume 83.2 fL (80.0-100.0); Monocytes # (auto) 0.5 10 ^3/uL (0-1.3); Neutrophils # (auto) 5.2 10 ^3/uL (1.6-8.6); Neutrophils % (auto) 85.8 % (37.0-80.0); Nucleated Red Blood Cells % 0.1 %; Platelet Count (auto) 78 10^3/uL (140-450); Red Blood Cells 4.67 10^6/uL (4.0-5.20); Red Cell Distribution Width 18.3 % (11.8-14.3); White Blood Cell 6.1 10^3/uL (4.4-10.8)
[2020-07-13 06:57] LABS: BUN/Creatinine Ratio 31.6; Calcium 10.5 mg/dL (8.5-10.1); Magnesium 1.8 mg/dL (1.6-2.6)
[2020-07-13 07:00] LABS: Bilirubin, Total 0.4 mg/dL (0.2-1.0); Phosphorus 2.4 mg/dL (2.5-4.90); Total Protein 5.5 g/dL (6.4-8.2)
--- NOTE | 2020-07-13 07:30 | NUR ---
Opening Shift Note Assumed patient care from NOC RN. Patient currently supine in bed, no signs of distress at this time. Respirations even and unlabored. Safety precautions in place, call light within reach. Will continue to monitor q1hr and PRN.
[2020-07-13 07:36] LABS: Potassium 2.8 mmol/L (3.5-5.1)
--- NOTE | 2020-07-13 07:47 | NUR ---
Left message with Dr. Segundo regarding critical lab value.
--- NOTE | 2020-07-13 07:58 | NUR ---
-Dr. Segundo New orders received.
--- NOTE | 2020-07-13 09:30 | NUR ---
at Station Dr. Davis at station discussing patient's plan of care.
[2020-07-13 09:32] VITALS: BP 140/77
[2020-07-13] MEDS: CYANOCOBALAMIN 500 MCG TAB PO SCH (10:00)
[2020-07-13] MEDS: HEPARIN SODIUM (PORCINE) 5000 UNITS/ML 1ML VIAL SC SCH ×2 (10:00→22:00)
[2020-07-13] MEDS: ASPirin 81 mg TAB PO SCH (10:00)
[2020-07-13] MEDS: NIFEdipine ER 30 MG TAB PO SCH (10:00)
[2020-07-13] MEDS: POTASSIUM CHL 20MEQ/100ML 100 ML IV SCH ×3 (10:05→13:50)
[2020-07-13] MEDS: hydrALAZINE HCL 25 MG TAB PO SCH (10:07)
[2020-07-13] MEDS: PANTOPRAZOLE 40 MG/10 ML VIAL INJ IV SCH ×2 (10:07→23:21)
[2020-07-13] MEDS: SODIUM CHLOR 0.9% PF (SALINE LOCK) 10ML VIAL/SYR IV SCH ×2 (10:10→23:21)
[2020-07-13] MEDS: cefTRIAXone 1GM/50ML D5W 50 ML IV SCH (12:17)
[2020-07-13] MEDS ORDERED: POTASSIUM CHLORIDE IV SCH (12:30)
[2020-07-13] MEDS ORDERED: D5 IV SCH (12:30)
[2020-07-13] MEDS ORDERED: SOD CHL IV SCH (12:30)
[2020-07-13 13:00] VITALS: BP 128/81
[2020-07-13] MEDS ORDERED: VANCOMYCIN 500 MG in D5W 5% 100 ML IV ONE ×2 (13:00→15:00)
--- NOTE | 2020-07-13 16:56 | NUR ---
BM Patient had large, liquid bowel movement-brown. Patient cleaned and linens changed. Patient tolerated well. No signs of distress at this time. Respirations even and unlabored. Safety precautions in place, will continue to monitor q1hr and PRN. Addendum: 07/13/20 at 1658 by FAMILIA SANTANA RN RN Stool sample sent to lab for cultures per Dr. Susan mayer.
[2020-07-13 17:00] VITALS: BP 125/88
--- NOTE | 2020-07-13 17:31 | NUR ---
assessment Patient is a 60 year old female who is alert and oriented, but has trouble speaking due to a stroke. Patient asked that I speak to her son Savanna. Justyn Corrales prior to admission patient lived home with him, his and other family members. Justyn Corrales patient had a stroke 8months to 1 year ago. Justyn Corrales patient lived with her boyfriend until recently when he moved patient with him and family. Justyn Corrales patient needs help with showering, walking, eating, and all ADL's. Justyn Corrales patient can feed herself when her plate is put in front of her and her spoon in her hand. Patient has a wheelchair, fww, and a cane for home use. I provided Savanna with [facility] caregiver resources and offered home health PT and safety to him. Dave accepted all resources. Justyn Corrales patient will return home with him on discharge and he will transport her back home. Savanna verbalized understanding and agreed to discharge plan home. Addendum: 07/13/20 at 1737 by Aparna CAREY Amended: Links added.
--- NOTE | 2020-07-13 18:15 | NUR ---
at Station Dr. Segundo at station. New orders received.
[2020-07-13] MEDS ORDERED: TPN PER PHARMACY IV NR ×9 (20:00)
[2020-07-13 21:18] VITALS: BP 118/95
[2020-07-13] MEDS: ATORVASTATIN 20 MG TAB PO SCH (23:21)
--- NOTE | 2020-07-13 23:29 | NUR ---
Dr. Hudson called and stated he will see the patient tomorrow.
[2020-07-14] MEDS: metroNIDAZOLE 500MG/100ML 100 ML IV SCH ×3 (00:33→17:04)
[2020-07-14] MEDS: ACCU-CHEK COMFORT CURVE STRIP VI SCH ×3 (00:34→12:00)
[2020-07-14] MEDS: InsuLIN REG 1unit/0.01ml Soln (100units/ml) SC SCH ×3 (00:36→12:00)
[2020-07-14 05:26] VITALS: BP 143/81
--- NOTE | 2020-07-14 07:03 | NUR ---
Opening Shift Note Assumed patient care from NOC RN. No signs of distress at this time. Will continue to monitor q1hr and PRN.
--- NOTE | 2020-07-14 07:19 | NUR ---
Endorsed care to Sparkle MONCADA. Patient is resting in bed, crain bag is hung below bladder, call light is within reach, fall precautions are in place.
[2020-07-14 09:00] VITALS: BP 135/70
[2020-07-14] MEDS: NIFEdipine ER 30 MG TAB PO SCH ×2 (09:00→10:00)
[2020-07-14] MEDS ORDERED: POTASSIUM CHL 20MEQ/100ML 100 ML IV SCH (09:00)
[2020-07-14] MEDS: cefTRIAXone 1GM/50ML D5W 50 ML IV SCH (09:29)
[2020-07-14] MEDS: PANTOPRAZOLE 40 MG/10 ML VIAL INJ IV SCH ×2 (09:29→22:59)
[2020-07-14] MEDS: SODIUM CHLOR 0.9% PF (SALINE LOCK) 10ML VIAL/SYR IV SCH ×2 (09:30→22:59)
[2020-07-14] MEDS: HEPARIN SODIUM (PORCINE) 5000 UNITS/ML 1ML VIAL SC SCH ×2 (09:30→22:00)
[2020-07-14] MEDS: ASPirin 81 mg TAB PO SCH (09:30)
[2020-07-14] MEDS: CYANOCOBALAMIN 500 MCG TAB PO SCH (10:00)
--- NOTE | 2020-07-14 10:00 | NUR ---
at Bedside Dr. Willis at bedside, new orders received.
[2020-07-14 10:35] LABS: BUN/Creatinine Ratio 33.5; Calcium 10.8 mg/dL (8.5-10.1); Magnesium 2.1 mg/dL (1.6-2.6); Potassium 3.2 mmol/L (3.5-5.1)
--- NOTE | 2020-07-14 10:35 | NUR ---
Off Unit Patient taken off unit for Hida Scan.
--- NOTE | 2020-07-14 11:39 | NUR ---
MD Called Left message with Dr. Willis regarding patient anxiety/Hida scan.
[2020-07-14] MEDS ORDERED: MORPHINE SULF INJ 2 MG/ML SYRINGE 1ML IV ONE (12:00)
--- NOTE | 2020-07-14 12:08 | NUR ---
Pain Med See EMAR pain medication administered. Patient monitored by this RN in radiology during hida scan. 1204 RR 24 [id number] 1221 RR 18 1230 RR 20 Patient shows no signs of distress. Patient is awake and alert, able to follow simple commands. Respirations are even, unlabored and normal in depth. Will continue to monitor.
[2020-07-14] MEDS: POTASSIUM CHLORIDE 20 MEQ in D5W 5% 1,000 ML IV SCH ×2 (12:19→19:06)
--- NOTE | 2020-07-14 13:00 | NUR ---
Patient Returned Patient returned to unit from radiology.
--- NOTE | 2020-07-14 15:21 | NUR ---
re-assessment Per ss consult home health physical therapy and nursing. MD order has been sent to [facility]. Per Kathy at [facility] she has accepted patient for service 24 to 48 hours from discharge. Waiting on discharge now. Sabine case specialist is getting auth from [facility] case specialist. Addendum: 07/14/20 at 1523 by Aparna Flanagan Amended: Links added.
[2020-07-14] MEDS ORDERED: VANCOMYCIN 500 MG in D5W 5% 100 ML IV ONE ×2 (16:00→18:30)
--- NOTE | 2020-07-14 16:33 | NUR ---
at Bedside Dr. Munoz at bedside. Per MD, no interventions at this time. Patient to have repeat ultrasound in 2-3 months.
--- NOTE | 2020-07-14 16:49 | NUR ---
Jesusita TIERNEY from [facility] gave authorization for Yue hilliard to see the patient #[id number].
[2020-07-14 17:00] VITALS: BP 146/82
[2020-07-14] MEDS: POTASSIUM CHL 20MEQ/100ML 100 ML IV SCH ×2 (17:04→19:24)
--- NOTE | 2020-07-14 18:30 | NUR ---
MD Dr. Hudson at bedside. Per MD, patient to follow up as outpatient for surgery, no intervention at this time.
--- NOTE | 2020-07-14 19:30 | NUR ---
Opening Shift Note Assumed care of patient, awake and alert x2. No S/S of distress/SOB or pain. Rodrigez is hung below bladder and draining yellow urine. Call light is within reach, fall precautions are in place. Instructed on POC and to call for assist PRN, will continue to monitor for changes Q1hr and PRN.
[2020-07-14 21:37] VITALS: BP 137/86
[2020-07-14] MEDS: ATORVASTATIN 20 MG TAB PO SCH (22:00)
--- NOTE | 2020-07-14 22:00 | NUR ---
2200 Lipitor not given due to patient refusal, attempted to give patient the medication. After taking the pills she proceeded to use her finger and take them out of her mouth. Patient stated, "No," when asked why she did not want to take them.
[2020-07-15] MEDS: metroNIDAZOLE 500MG/100ML 100 ML IV SCH ×2 (01:24→08:51)
[2020-07-15] MEDS: POTASSIUM CHLORIDE 20 MEQ in D5W 5% 1,000 ML IV SCH (04:17)
[2020-07-15 05:22] VITALS: BP 151/84
--- NOTE | 2020-07-15 06:27 | NUR ---
IV removal from RFA/RAC/left hand IV DC'd with clean sterile technique, catheter fully intact. Pressure dressing applied to site. Patient tolerated well.
--- NOTE | 2020-07-15 07:30 | NUR ---
Opening Shift Note Assumed patient care from NOC RN. Patient currently resting in bed at this time, no signs of distress. Safety precautions in place, will continue to monitor.
[2020-07-15 07:32] LABS: Calcium 9.7 mg/dL (8.5-10.1); Potassium 5.2 mmol/L (3.5-5.1)
[2020-07-15 07:35] LABS: BUN/Creatinine Ratio 28.9; Bilirubin, Total 0.4 mg/dL (0.2-1.0); Phosphorus 1.9 mg/dL (2.5-4.90); Total Protein 4.9 g/dL (6.4-8.2)
[2020-07-15] MEDS ORDERED: DEXTROSE (50%) 50ML SYRG IV PRN (08:30)
[2020-07-15] MEDS: INSULIN LANTUS (GLARGINE) 1 /0.01ml (100units/ml) SC SCH (08:30)
--- NOTE | 2020-07-15 08:43 | NUR ---
Blood Glucose Reassessed patient's BG per protocol. Insulin not indicated at this time, see EMAR/EMR.
[2020-07-15] MEDS: cefTRIAXone 1GM/50ML D5W 50 ML IV SCH (08:51)
[2020-07-15] MEDS: ASPirin 81 mg TAB PO SCH (10:00)
[2020-07-15] MEDS: HEPARIN SODIUM (PORCINE) 5000 UNITS/ML 1ML VIAL SC SCH ×2 (10:00→22:00)
[2020-07-15] MEDS: CYANOCOBALAMIN 500 MCG TAB PO SCH (10:00)
[2020-07-15] MEDS: NIFEdipine ER 30 MG TAB PO SCH (10:00)
--- NOTE | 2020-07-15 10:30 | NUR ---
at Bedside Dr. Davis at bedside discussing patient's plan of care. MD aware that patient ate approximately 25% of breakfast (today) and 50% dinner (on 07/14). Addendum: 07/15/20 at 6 by FAMILIA SANTANA RN RN Wrong time: 1246
[2020-07-15] MEDS: PANTOPRAZOLE 40 MG/10 ML VIAL INJ IV SCH ×2 (10:58→22:40)
[2020-07-15] MEDS: SODIUM CHLOR 0.9% PF (SALINE LOCK) 10ML VIAL/SYR IV SCH ×2 (10:58→22:40)
[2020-07-15] MEDS: InsuLIN REG 1unit/0.01ml Soln (100units/ml) SC SCH ×3 (11:30→22:00)
[2020-07-15] MEDS: ACCU-CHEK COMFORT CURVE STRIP VI SCH ×3 (11:45→22:42)
[2020-07-15] MEDS: SOD CHL 0.45% 1,000 ML IV SCH (11:48)
[2020-07-15 13:00] VITALS: BP 160/86
--- NOTE | 2020-07-15 14:26 | NUR ---
Nutrition Followup Note Wt 69.4kg Pt was sleeping with no family at bedside at time of rounds. Pt was on TPN with diet recently advanced to pureed 07/11 per MD note. Pt diet is inadequate aeb pt with 25-50% of meals per RN note. Consider adding Glucerna 1 carton BID Est Energy needs: 3321-5222 kcals (20-23 kcal/kgBW) Est Protein needs: 64-72 gms/day (0.8-0.9 gm/kgBW) Will continue to monitor and reassess prn. Labs: K 5.2H, BUN 52H, Creat 1.80H, Alb 2.0L BM: Pt with 3 BMs 07/15 per Rn note Skin: BS 14 mod risk, full details in rn critical care note PES: 1) Altered nutrition related lab values r/t current/chronic medical condition aeb elev RFTs, low GFR, hypokalemia, hyperglycemia, hypoalbuminemia Comments Will continue to monitor PO status, skin status, pertinent labs and weight trends. Will f/u in 3-5 days. 1) Continue to carefully monitor pt PO intake to meet at least 75% of meals 2) Gradually advance pt to oral Renal Specific 70gProtein,2gNa,K2,lowphos diet when medically feasible and as tolerated 3) If albumin continues trending down with improved RFTs, consider Prostat 1 pkt BID 4) Continue current plan of care Expected Outcomes/Goals: Pt appetite to meet at lest 75% PO intake Pt diet to advance Pt labs to improve
--- NOTE | 2020-07-15 14:40 | NUR ---
at Bedside Dr Willis at [facility] discussing patient plan of care. Addendum: 07/15/20 at 1953 by FAMILIA SANTANA RN RN New orders received.
--- NOTE | 2020-07-15 17:00 | NUR ---
Radiology Per professor of radiology, MRI will not be available until Friday.
--- NOTE | 2020-07-15 18:00 | NUR ---
BM Patient had large bowel movement. Patient cleaned and linens changed with MARIA M Pruett. Will continue to monitor q1hr and PRN.
[2020-07-15] MEDS ORDERED: ACETAMINOPHEN 650 mg PER 20.3 mL UD PO PRN (20:00)
--- NOTE | 2020-07-15 21:45 | NUR ---
pt moved to room 219B
[2020-07-15 22:00] VITALS: BP 133/85
--- NOTE | 2020-07-15 22:30 | NUR ---
spoke with Dr. Gibbs about pt's heparin, plt is 78, ok to hold off heparin for now.
[2020-07-15] MEDS: ATORVASTATIN 20 MG TAB PO SCH (22:40)
[2020-07-16] MEDS: HYDROcodone-ACET 5/325MG TAB PO PRN (01:41)
[2020-07-16] MEDS: SOD CHL 0.45% 1,000 ML IV SCH (01:43)
[2020-07-16 05:00] VITALS: BP 142/91
[2020-07-16] MEDS: InsuLIN REG 1unit/0.01ml Soln (100units/ml) SC SCH ×4 (06:33→21:07)
[2020-07-16] MEDS: INSULIN LANTUS (GLARGINE) 1 /0.01ml (100units/ml) SC SCH (06:33)
[2020-07-16] MEDS: ACCU-CHEK COMFORT CURVE STRIP VI SCH ×3 (06:34→21:07)
[2020-07-16 06:40] LABS: Basophils # (auto) 0 10 ^3/uL (0-0.2); Basophils % (auto) 0.2 % (0.0-2.0); Eosinophils # (auto) 0 10 ^3/uL (0-0.8); Eosinophils % (auto) 0.2 % (0.0-7.0); Hematocrit 37.6 % (36.0-46.0); Hemoglobin 12.2 g/dL (12.2-16.2); Lymphocytes # (auto) 0.3 10 ^3/uL (0.4-5.4); Lymphocytes % (auto) 5.6 % (10.0-50.0); Mean Corpuscular Hemoglobin 27.5 pg (28.0-32.0); Mean Corpuscular Hgb Conc. 32.5 g/dL (32.0-36.0); Mean Corpuscular Volume 84.5 fL (80.0-100.0); Monocytes # (auto) 0.5 10 ^3/uL (0-1.3); Monocytes % (auto) 7.3 % (0.0-12.0); Neutrophils # (auto) 5.4 10 ^3/uL (1.6-8.6); Neutrophils % (auto) 86.7 % (37.0-80.0); Nucleated Red Blood Cells % 0.3 %; Platelet Count (auto) 89 10^3/uL (140-450); Red Blood Cells 4.45 10^6/uL (4.0-5.20); Red Cell Distribution Width 17.8 % (11.8-14.3); White Blood Cell 6.2 10^3/uL (4.4-10.8)
[2020-07-16 07:00] LABS: Potassium 3.4 mmol/L (3.5-5.1)
[2020-07-16 07:09] LABS: BUN/Creatinine Ratio 30.3; Bilirubin, Total 0.4 mg/dL (0.2-1.0); Calcium 10.7 mg/dL (8.5-10.1); Total Protein 4.9 g/dL (6.4-8.2)
--- NOTE | 2020-07-16 07:29 | NUR ---
endorsed care to day RN, no sign of pain/distress at this time
[2020-07-16] MEDS ORDERED: D5W 5% 1,000 ML IV SCH (08:30)
[2020-07-16 09:00] VITALS: BP 125/87
[2020-07-16] MEDS: HEPARIN SODIUM (PORCINE) 5000 UNITS/ML 1ML VIAL SC SCH ×2 (10:00→21:08)
[2020-07-16] MEDS: SODIUM CHLOR 0.9% PF (SALINE LOCK) 10ML VIAL/SYR IV SCH ×2 (11:39→21:06)
[2020-07-16] MEDS: D5W 5% 1,000 ML IV SCH ×2 (11:39→19:00)
[2020-07-16] MEDS: POTASSIUM CHL 20MEQ/100ML 100 ML IV SCH ×2 (11:43→16:30)
[2020-07-16] MEDS: ASPirin 81 mg TAB PO SCH (11:43)
[2020-07-16] MEDS: cefTRIAXone 1GM/50ML D5W 50 ML IV SCH (11:43)
[2020-07-16] MEDS: CYANOCOBALAMIN 500 MCG TAB PO SCH (11:44)
[2020-07-16] MEDS: NIFEdipine ER 30 MG TAB PO SCH (11:44)
[2020-07-16 13:00] VITALS: BP 151/68
--- NOTE | 2020-07-16 19:30 | NUR ---
Opening Shift Note Assumed care of patient, awake and alert. No S/S of distress/SOB or pain. Instructed on POC and to call for assist PRN, will continue to monitor for changes Q1hr and PRN.
[2020-07-16] MEDS: ATORVASTATIN 20 MG TAB PO SCH (21:06)
[2020-07-16 22:00] VITALS: BP 138/88
[2020-07-17] MEDS: D5W 5% 1,000 ML IV SCH (01:22)
--- NOTE | 2020-07-17 01:28 | NUR ---
pt moved to room 221B
[2020-07-17 05:00] VITALS: BP 137/82
[2020-07-17] MEDS: InsuLIN REG 1unit/0.01ml Soln (100units/ml) SC SCH ×4 (06:39→22:00)
[2020-07-17] MEDS: INSULIN LANTUS (GLARGINE) 1 /0.01ml (100units/ml) SC SCH (06:39)
[2020-07-17] MEDS: ACCU-CHEK COMFORT CURVE STRIP VI SCH ×4 (06:39→22:00)
[2020-07-17 07:13] LABS: Basophils # (auto) 0 10 ^3/uL (0-0.2); Basophils % (auto) 0.1 % (0.0-2.0); Eosinophils # (auto) 0 10 ^3/uL (0-0.8); Eosinophils % (auto) 0.5 % (0.0-7.0); Hematocrit 34.5 % (36.0-46.0); Hemoglobin 11.4 g/dL (12.2-16.2); Lymphocytes # (auto) 0.3 10 ^3/uL (0.4-5.4); Lymphocytes % (auto) 6.5 % (10.0-50.0); Mean Corpuscular Hemoglobin 27.9 pg (28.0-32.0); Mean Corpuscular Hgb Conc. 32.9 g/dL (32.0-36.0); Mean Corpuscular Volume 84.7 fL (80.0-100.0); Monocytes # (auto) 0.3 10 ^3/uL (0-1.3); Monocytes % (auto) 5.4 % (0.0-12.0); Neutrophils # (auto) 4.2 10 ^3/uL (1.6-8.6); Neutrophils % (auto) 87.5 % (37.0-80.0); Platelet Count (auto) 101 10^3/uL (140-450); Red Blood Cells 4.08 10^6/uL (4.0-5.20); Red Cell Distribution Width 17.9 % (11.8-14.3); White Blood Cell 4.8 10^3/uL (4.4-10.8)
--- NOTE | 2020-07-17 07:16 | NUR ---
closing note endorsed care to day RN, denies pain/distress at this time
[2020-07-17 07:39] LABS: Albumin 1.9 g/dL (3.4-5.0); BUN/Creatinine Ratio 29.5; Bilirubin, Total 0.3 mg/dL (0.2-1.0); Calcium 10.1 mg/dL (8.5-10.1); Total Protein 4.7 g/dL (6.4-8.2)
[2020-07-17 09:00] VITALS: BP 133/86
[2020-07-17] MEDS: HEPARIN SODIUM (PORCINE) 5000 UNITS/ML 1ML VIAL SC SCH ×2 (10:00→22:00)
[2020-07-17] MEDS: cefTRIAXone 1GM/50ML D5W 50 ML IV SCH (11:05)
[2020-07-17] MEDS: SODIUM CHLOR 0.9% PF (SALINE LOCK) 10ML VIAL/SYR IV SCH ×2 (11:05→21:57)
[2020-07-17] MEDS: ASPirin 81 mg TAB PO SCH (11:06)
[2020-07-17] MEDS: CYANOCOBALAMIN 500 MCG TAB PO SCH (11:06)
[2020-07-17] MEDS: NIFEdipine ER 30 MG TAB PO SCH (11:10)
--- NOTE | 2020-07-17 12:08 | NUR ---
Faxed clinical packet to [facility] [phone] requesting authorization for LTAC
[2020-07-17] MEDS: POTASSIUM CHLORIDE 20 MEQ in D5W 5% 1,000 ML IV SCH ×2 (12:23→20:36)
[2020-07-17 13:00] VITALS: BP 138/90
[2020-07-17] MEDS: HYDROcodone-ACET 5/325MG TAB PO PRN ×3 (13:29→23:14)
--- NOTE | 2020-07-17 13:35 | NUR ---
Called Ofelia TIERNEY at [facility] [phone], there was no answer left a message, regarding the transfer to a LTAC and needing authorization.
--- NOTE | 2020-07-17 14:42 | NUR ---
Received a call from Ofelia TIERNEY at [facility] states she is going to have to discuss patient going to a LTAC with her medical doctor, because she can go to a SNF for severe weakness and deconditioning, stated she would have to call me back regarding the patient
--- NOTE | 2020-07-17 16:15 | NUR ---
D/C Planning Per Social Service consult for [facility]ACH. Faxed clinical information to [facility]. Pending acceptance from [facility] and approval from [facility]. NILAL Regalado will work on authorization from [facility].
--- NOTE | 2020-07-17 16:52 | NUR ---
Received a call from Ofelia TIERNEY at [facility] stated the MD has not gotten back with her regarding if the patient can go to the LTAC, stated she will call tomorrow.
[2020-07-17 17:00] VITALS: BP 141/88
--- NOTE | 2020-07-17 19:25 | NUR ---
OPENING SHIFT NOTE Assumed care of patient, patient is alert and oriented to self answering in yes or no. Sitter is bedside. Currently on RA with no S/S of distress or SOB noted at this time. Rodrigez is draining clear yellow urine, no kinks and is hanging to the lowest part of the bed. Patient denies any pain. POC discussed with patient and patient/sitter encouraged to call for assistance as needed. Bed in lowest position, locked, side rails up x3. Call light is within reach. Will continue to monitor PRN.
[2020-07-17] MEDS: ATORVASTATIN 20 MG TAB PO SCH ×2 (21:57→22:00)
--- NOTE | 2020-07-17 22:00 | NUR ---
MEDICATION HELD Spoke with Dr. Castillo at [facility] exchange regarding heparin administration, per MD hold 2200 heparin and he will discuss with Fede in the AM to discuss parameters on when to give heparin dose.
[2020-07-18] MEDS: ACCU-CHEK COMFORT CURVE STRIP VI SCH ×4 (06:30→21:37)
[2020-07-18] MEDS: InsuLIN REG 1unit/0.01ml Soln (100units/ml) SC SCH ×4 (06:30→21:37)
[2020-07-18] MEDS: INSULIN LANTUS (GLARGINE) 1 /0.01ml (100units/ml) SC SCH ×2 (06:30→14:15)
[2020-07-18] MEDS: POTASSIUM CHLORIDE 20 MEQ in D5W 5% 1,000 ML IV SCH ×3 (06:42→14:15)
[2020-07-18 07:08] LABS: Potassium 3.3 mmol/L (3.5-5.1)
[2020-07-18 07:16] LABS: BUN/Creatinine Ratio 25.5; Bilirubin, Total 0.3 mg/dL (0.2-1.0); Calcium 10.4 mg/dL (8.5-10.1); Total Protein 4.9 g/dL (6.4-8.2)
--- NOTE | 2020-07-18 07:29 | NUR ---
CARE ENDORSED TO DAY SHIFT RN
--- NOTE | 2020-07-18 08:40 | NUR ---
Received a call from Ofelia TIERNEY at [facility] [phone], stated that [facility] with not authorize for the patient to go to LTAC only SNF, called the Marisol RN and informed her that she needed to call the MD and make him aware, stated she would after the doctors were assigned to the patients, ask her to call me back after she had spoke to the MD.
[2020-07-18 09:00] VITALS: BP 134/82
[2020-07-18] MEDS: cefTRIAXone 1GM/50ML D5W 50 ML IV SCH (09:28)
[2020-07-18] MEDS: ASPirin 81 mg TAB PO SCH (09:29)
[2020-07-18] MEDS: SODIUM CHLOR 0.9% PF (SALINE LOCK) 10ML VIAL/SYR IV SCH ×2 (09:29→21:37)
[2020-07-18] MEDS: NIFEdipine ER 30 MG TAB PO SCH (09:30)
[2020-07-18] MEDS: CYANOCOBALAMIN 500 MCG TAB PO SCH (09:30)
--- NOTE | 2020-07-18 09:58 | NUR ---
LEFT A MESSAGE TO DR. Gregory TOBIAS THAT [facility] WILL APPROVE ONLY SNF PLACEMENT PER ASSOCIATE PROFESSOR OF ART HISTORY CARLI. WAITING FOR CALL BACK.
[2020-07-18] MEDS: HYDROcodone-ACET 5/325MG TAB PO PRN ×2 (11:49→21:38)
--- NOTE | 2020-07-18 12:18 | NUR ---
Nutrition Followup Note Wt 80.6kg Pt was sleeping with no family at bedside at time of rounds. Pt is currently awaiting transfer to SNF per MD discharge note. pt is with a pureed diet with in adequate po intake aeb pt with avg po intake of 20% x 2 days per RN note. Consider adding Glucerna 1 carton BID. Est Energy needs: 5279-5835 kcals (20-23 kcal/kgBW) Est Protein needs: 64-72 gms/day (0.8-0.9 gm/kgBW) Will continue to monitor and reassess prn. 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 Will f/u in 3-5 days. 1) Continue to carefully monitor pt PO intake to meet at least 75% of meals 2) If albumin continues trending down with improved RFTs, consider Prostat 1 pkt BID 3) Continue current plan of care Expected Outcomes/Goals: Pt appetite to meet at lest 75% PO intake Pt diet to advance Pt labs to improve
[2020-07-18 13:00] VITALS: BP 125/83
--- NOTE | 2020-07-18 13:34 | NUR ---
Called Dr Willis who is covering the patient today and left a message regarding the patient having to go to a SNF per the insurance, left call back information
--- NOTE | 2020-07-18 14:15 | NUR ---
LANTUS DOSE NOT GIVEN, ORDERED FOR QAM.
--- NOTE | 2020-07-18 15:07 | NUR ---
DR. COLEY ORDERED TO DC PICC LINE PRIOR TO DISCHARGE.
--- NOTE | 2020-07-18 16:34 | NUR ---
D/C planning Per social service consult for SNF placement. Faxed clinical information to [facility], [facility], [facility] and [facility]. Patient has been accepted to [facility] [phone]. Per Sunday with [facility] patient will be going to room 201 bed 1 accepting MD, Dr. Reyes. Faxed clinical information to [facility]. Pending authorization from [facility].
[2020-07-18 17:00] VITALS: BP 130/85
--- NOTE | 2020-07-18 19:15 | NUR ---
OPENING SHIFT NOTE Assumed care of patient, patient is alert and oriented to self answering in yes or no. Sitter is bedside. Currently on RA with no S/S of distress or SOB noted at this time. Patient denies any pain. POC discussed with patient and patient/sitter encouraged to call for assistance as needed. Bed in lowest position, locked, side rails up x3. Call light is within reach. Will continue to monitor PRN.
[2020-07-18] MEDS: ATORVASTATIN 20 MG TAB PO SCH (21:38)
[2020-07-18 22:02] VITALS: BP 136/86
[2020-07-19 05:00] VITALS: BP 129/89
[2020-07-19] MEDS: ACCU-CHEK COMFORT CURVE STRIP VI SCH ×2 (06:33→11:53)
[2020-07-19] MEDS: InsuLIN REG 1unit/0.01ml Soln (100units/ml) SC SCH ×2 (06:33→11:30)
[2020-07-19] MEDS: INSULIN LANTUS (GLARGINE) 1 /0.01ml (100units/ml) SC SCH (06:34)
--- NOTE | 2020-07-19 07:30 | NUR ---
Opening Shift Note Assumed care of patient, awake and alert. Patient is alert to name and is able to follow commands. No S/S of distress/SOB or pain. Instructed on POC and to call for assist PRN, will continue to monitor for changes Q1hr and PRN. Bed is locked and in lowest position. Sitter at bedside for safety. Call light within reach.
--- NOTE | 2020-07-19 07:33 | NUR ---
CARE ENDORSED TO DAY SHIFT RN
[2020-07-19 08:33] VITALS: BP 126/84
[2020-07-19] MEDS: cefTRIAXone 1GM/50ML D5W 50 ML IV SCH (09:49)
[2020-07-19] MEDS: POTASSIUM CHLORIDE 20 MEQ in D5W 5% 1,000 ML IV SCH (09:49)
[2020-07-19] MEDS: NIFEdipine ER 30 MG TAB PO SCH (09:50)
[2020-07-19] MEDS: ASPirin 81 mg TAB PO SCH (09:50)
[2020-07-19] MEDS: SODIUM CHLOR 0.9% PF (SALINE LOCK) 10ML VIAL/SYR IV SCH (09:50)
[2020-07-19] MEDS: CYANOCOBALAMIN 500 MCG TAB PO SCH (09:50)
[2020-07-19] MEDS: HYDROcodone-ACET 5/325MG TAB PO PRN (11:00)
[2020-07-19 12:41] VITALS: BP 130/81
--- NOTE | 2020-07-19 14:22 | NUR ---
D/C Planning Received a follow up called from NILAL Hayes with [facility] to approved SNF placement. Authorization fro [facility] [id number] and transportation [id number]. Placed follow up called to Sunday with [facility] advising them skill has been approved and patient will be transporting to their facility today. Per Sunday with [facility] patient room will be 204 bed 1. Transportation has been arranged with [employer] via [employer] between 1:30-3:30pm . Informed CORAL Wang.
[2020-07-19 14:26] VITALS: BP 126/84
--- NOTE | 2020-07-19 15:01 | NUR ---
PHONE CALL MADE TO [facility] FOR TRANSFER. RECEIVING RN JENNIFER TOOK REPORT FOR PATIENT GOING TO ROOM 204 BED 1. RECEIVING MD WILL BE DR. SANCHEZ. PATIENT WILL BE TRANSPORTED VIA [employer]. PHONE CALL MADE TO BLANCA LAWRENCE AT [phone] TO INFORM OF TRANSFER AND DISCHARGE. SON VERBALIZED AGREEMENT AND TWO RN VERIFICATION FOR DISCHARGE AND TRANSFER USED. WILL AWAIT [facility]ATH[facility] [employer].
--- NOTE | 2020-07-19 15:40 | NUR ---
PICC removal PICC REMOVED ON RIGHT UPPER ARM DC'd with clean sterile technique, catheter fully intact. Pressure dressing applied to site. Patient tolerated well.
[2020-07-19 16:12] VITALS: BP 128/80
== END 2020-07-19 16:58 | DRG 720 ==
LOC: EDBD 18:44 → ER 18:44 → TELE 18:45 → ICU WEST 07-09 06:08 → TELE-CENTR 07-12 03:00 → TELE 07-14 09:35 → TELE-CENTR 07-14 09:38
PROVIDERS: ADMIT Internal Medicine; ATTEND Internal Medicine
PROC: 5A1D70Z Performance of Urinary Filtration, Intermittent, Less than 6 Hours Per Day (ICD-10-PCS; principal; 2020-07-10)
PROC: 02HV33Z Insertion of Infusion Device into Superior Vena Cava, Percutaneous Approach (ICD-10-PCS; 2020-07-10)
DX: A41.9 Sepsis, unspecified organism (principal); N39.0 Urinary tract infection, site not specified; I63.81 Other cerebral infarction due to occlusion or stenosis of small artery; I21.4 Non-ST elevation (NSTEMI) myocardial infarction; G92 Toxic encephalopathy; J01.00 Acute maxillary sinusitis, unspecified; E87.6 Hypokalemia; R57.9 Shock, unspecified; N18.30 Chronic kidney disease, stage 3 unspecified; E87.0 Hyperosmolality and hypernatremia; E87.2 Acidosis; E86.0 Dehydration; B96.20 Unspecified Escherichia coli [E. coli] as the cause of diseases classified elsewhere; D69.6 Thrombocytopenia, unspecified; E11.22 Type 2 diabetes mellitus with diabetic chronic kidney disease; E21.0 Primary hyperparathyroidism; E27.9 Disorder of adrenal gland, unspecified; E46 Unspecified protein-calorie malnutrition; F41.9 Anxiety disorder, unspecified; G35 Multiple sclerosis; I12.9 Hypertensive chronic kidney disease with stage 1 through stage 4 chronic kidney disease, or unspecified chronic kidney disease; K52.9 Noninfective gastroenteritis and colitis, unspecified; K82.8 Other specified diseases of gallbladder; N28.89 Other specified disorders of kidney and ureter; K21.9 Gastro-esophageal reflux disease without esophagitis; N17.0 Acute kidney failure with tubular necrosis; Z79.02 Long term (current) use of antithrombotics/antiplatelets; Z79.82 Long term (current) use of aspirin; Z79.899 Other long term (current) drug therapy; Z82.3 Family history of stroke; Z86.73 Personal history of transient ischemic attack (TIA), and cerebral infarction without residual deficits; U07.1 COVID-19; E78.5 Hyperlipidemia, unspecified; Z68.22 Body mass index [BMI] 22.0-22.9, adult
CPT/HCPCS: 36415; 36569; 36600; 51702; 70450; 70551; 71045; 71250; 74176; 76856; 78070; 78226; 80048; 80053; 80061; 80074; 80202; 80307; 81001; 82040; 82140; 82550; 82607; 82728; 82746; 82784; 82805; 82962; 83036; 83540; 83550; 83605; 83735; 83883; 83970; 84100; 84155; 84165; 84443; 84478; 84484; 85025; 85379; 85384; 85610; 85730; 86334; 86850; 86900; 86901; 87040; 87045; 87081; 87086; 87088; 87186; 87426; 87427; 87493; 90935; 92610; 93005; 93306; 95819; 97110; 97530; C9113; G0378; J0696; J1815; J2543; J3480; J3490; J7060

== ENCOUNTER 2020-07-28 18:31 | Inpatient (IN) | payer MEDICAID ==
[~2020-07-28] VITALS: Ht 172.7 cm; Wt 81.1 kg
[~2020-07-28 18:31] MED LIST: ATOR40TA52 PO; CINA30TA2 PO; CLOP75TA41 PO; HYDR-4296 PO; NIFE1TAB30 PO; PANT1INJ3 IV
[2020-07-28] MEDS ORDERED: POTASSIUM CHL 20MEQ/100ML 100 ML IV ONE (19:15)
[2020-07-28 20:28] LABS: Basophils # (auto) 0 10 ^3/uL (0-0.2); Eosinophils # (auto) 0 10 ^3/uL (0-0.8); Hematocrit 39.5 % (36.0-46.0); Hemoglobin 12.7 g/dL (12.2-16.2); Lymphocytes # (auto) 0.6 10 ^3/uL (0.4-5.4); Lymphocytes % (auto) 6.5 % (10.0-50.0); Mean Corpuscular Hemoglobin 27.3 pg (28.0-32.0); Mean Corpuscular Hgb Conc. 32.3 g/dL (32.0-36.0); Mean Corpuscular Volume 84.6 fL (80.0-100.0); Monocytes # (auto) 0.5 10 ^3/uL (0-1.3); Monocytes % (auto) 6.2 % (0.0-12.0); Neutrophils # (auto) 7.5 10 ^3/uL (1.6-8.6); Neutrophils % (auto) 87.3 % (37.0-80.0); Nucleated Red Blood Cells % 0.2 %; Platelet Count (auto) 124 10^3/uL (140-450); Red Blood Cells 4.67 10^6/uL (4.0-5.20); Red Cell Distribution Width 18.6 % (11.8-14.3); White Blood Cell 8.6 10^3/uL (4.4-10.8)
[2020-07-28 20:39] LABS: Potassium 3.1 mmol/L (3.5-5.1)
[2020-07-28 20:41] LABS: BUN/Creatinine Ratio 23.4
[2020-07-28 20:43] LABS: Bilirubin, Total 0.4 mg/dL (0.2-1.0); Total Protein 6.1 g/dL (6.4-8.2)
[2020-07-28 20:52] LABS: INR 1.39 (0.9-1.15); Partial Thromboplastin Time 26.5 sec (23.0-31.2)
[2020-07-28] MEDS ORDERED: SODIUM CHLORIDE 0.9% 1,000 ML IV ONE (21:15)
[2020-07-28] MEDS ORDERED: FLEET MINERAL OIL ENEMA 133 ML PR PRN (22:30)
[2020-07-28] MEDS ORDERED: ACETAMINOPHEN 650 MG RECT SUPP PR PRN (22:30)
[2020-07-28] MEDS ORDERED: NITROGLYCERIN 0.4 MG SL TAB SL PRN (22:30)
[2020-07-28] MEDS ORDERED: HYDROcodone-ACET 5/325MG TAB PO PRN (22:30)
[2020-07-28] MEDS ORDERED: MORPHINE SULF INJ 2 MG/ML SYRINGE 1ML IV PRN (22:30)
[2020-07-28] MEDS ORDERED: MILK OF MAGNESIA 30ML SUSP PO PRN (22:30)
[2020-07-28] MEDS ORDERED: BISACODYL 10 MG RECT SUPP PR PRN (22:30)
[2020-07-28] MEDS ORDERED: SODIUM CHLORIDE 0.9% 1,000 ML IV SCH (22:30)
[2020-07-28] MEDS ORDERED: DEXTROSE (50%) 50ML SYRG IV PRN (22:30)
[2020-07-28 23:54] LABS: Urine Bacteria NONE SEEN /hpf (None Seen); Urine Blood Negative /uL (Negative); Urine Hyaline Cast FEW /lpf (0 - 2); Urine Mucus FEW (None Seen); Urine Specific Gravity 1.015 (1.001-1.035); Urine WBC 2 /hpf (0 - 5)
[2020-07-29] VITALS (7 sets, daily range): BP systolic 108–133; BP diastolic 76–92
[2020-07-29] MEDS: INSULIN LANTUS (GLARGINE) 1 /0.01ml (100units/ml) SC SCH (07:00)
[2020-07-29] MEDS ORDERED: ACCU-CHEK COMFORT CURVE STRIP VI SCH (07:00)
[2020-07-29] MEDS: ACCU-CHEK COMFORT CURVE STRIP VI SCH ×4 (07:00→21:38)
[2020-07-29] MEDS: InsuLIN REG 1unit/0.01ml Soln (100units/ml) SC SCH ×4 (07:00→21:37)
[2020-07-29 07:30] LABS: Basophils # (auto) 0 10 ^3/uL (0-0.2); Basophils % (auto) 0.1 % (0.0-2.0); Eosinophils # (auto) 0 10 ^3/uL (0-0.8); Hematocrit 33.4 % (36.0-46.0); Hemoglobin 10.9 g/dL (12.2-16.2); Lymphocytes # (auto) 0.5 10 ^3/uL (0.4-5.4); Lymphocytes % (auto) 7.2 % (10.0-50.0); Mean Corpuscular Hemoglobin 27.7 pg (28.0-32.0); Mean Corpuscular Hgb Conc. 32.7 g/dL (32.0-36.0); Mean Corpuscular Volume 84.8 fL (80.0-100.0); Monocytes # (auto) 0.4 10 ^3/uL (0-1.3); Monocytes % (auto) 6.4 % (0.0-12.0); Neutrophils # (auto) 5.6 10 ^3/uL (1.6-8.6); Neutrophils % (auto) 86.3 % (37.0-80.0); Nucleated Red Blood Cells % 0.1 %; Platelet Count (auto) 99 10^3/uL (140-450); Red Blood Cells 3.93 10^6/uL (4.0-5.20); White Blood Cell 6.5 10^3/uL (4.4-10.8)
[2020-07-29 07:42] LABS: Albumin 1.7 g/dL (3.4-5.0); BUN/Creatinine Ratio 25.5; Calcium 12.2 mg/dL (8.5-10.1); Potassium 3.1 mmol/L (3.5-5.1)
[2020-07-29 07:44] LABS: Bilirubin, Total 0.3 mg/dL (0.2-1.0); Total Protein 5.2 g/dL (6.4-8.2)
[2020-07-29 07:51] LABS: Magnesium 2.5 mg/dL (1.6-2.6); Phosphorus 4.2 mg/dL (2.5-4.90)
[2020-07-29] MEDS ORDERED: SOD CHL 0.45% 1,000 ML IV SCH (08:30)
[2020-07-29] MEDS: SUCRALFATE 1 GM TAB PO SCH ×2 (10:00→22:00)
[2020-07-29] MEDS ORDERED: PANTOPRAZOLE 40 MG TAB PO SCH (10:00)
[2020-07-29] MEDS ORDERED: D5W/SOD CHL 0.45% 1,000 ML IV SCH (10:00)
[2020-07-29] MEDS ORDERED: CYANOCOBALAMIN 500 MCG TAB PO SCH (10:00)
[2020-07-29] MEDS: NIFEdipine ER 30 MG TAB PO SCH (10:00)
[2020-07-29] MEDS: CALCITONIN 400unit/2ml Vial (200unit/ml) SC SCH ×2 (10:00→22:38)
[2020-07-29] MEDS: CYANOCOBALAMIN 500 MCG TAB PO SCH (13:41)
[2020-07-29] MEDS: D5W/SOD CHL 0.45% 1,000 ML IV SCH ×2 (15:30→22:39)
[2020-07-29] MEDS: FREE WATER NG SCH ×2 (17:46→23:29)
[2020-07-29] MEDS ORDERED: ATORVASTATIN 20 MG TAB PO ONE (18:00)
[2020-07-30 05:00] VITALS: BP 123/88
[2020-07-30] MEDS: FREE WATER NG SCH ×4 (05:48→23:42)
[2020-07-30] MEDS: InsuLIN REG 1unit/0.01ml Soln (100units/ml) SC SCH ×4 (06:10→21:45)
[2020-07-30] MEDS: INSULIN LANTUS (GLARGINE) 1 /0.01ml (100units/ml) SC SCH (06:10)
[2020-07-30] MEDS: ACCU-CHEK COMFORT CURVE STRIP VI SCH ×4 (06:11→21:46)
[2020-07-30] MEDS: D5W/SOD CHL 0.45% 1,000 ML IV SCH (06:11)
[2020-07-30 06:48] LABS: BUN/Creatinine Ratio 30.4; Calcium 11.3 mg/dL (8.5-10.1)
[2020-07-30 07:23] LABS: Potassium 2.8 mmol/L (3.5-5.1)
[2020-07-30 09:00] VITALS: BP 117/70
[2020-07-30] MEDS ORDERED: cefTRIAXone 1GM/50ML D5W 50 ML IV SCH (09:00)
[2020-07-30] MEDS: POTASSIUM CHL 20MEQ/100ML 100 ML IV SCH ×2 (09:32→11:12)
[2020-07-30] MEDS: SUCRALFATE 1 GM TAB PO SCH ×2 (09:33→17:00)
[2020-07-30] MEDS: CYANOCOBALAMIN 500 MCG TAB PO SCH (09:33)
[2020-07-30] MEDS: ACETAMINOPHEN 325 MG TAB PO PRN (09:33)
[2020-07-30] MEDS: NIFEdipine ER 30 MG TAB PO SCH (10:00)
[2020-07-30] MEDS ORDERED: PANTOPRAZOLE 40 MG/10 ML VIAL INJ IV ONE (10:30)
[2020-07-30] MEDS: CALCITONIN 400unit/2ml Vial (200unit/ml) SC SCH ×2 (11:14→21:46)
[2020-07-30 13:00] VITALS: BP 120/86
[2020-07-30] MEDS: D5W 5% 1,000 ML IV SCH ×2 (13:07→19:33)
[2020-07-30] MEDS: PIPERACILLIN-TAZOB 3.375GM 100 ML IV SCH ×2 (14:42→21:44)
[2020-07-30 17:00] VITALS: BP 139/91
[2020-07-30 19:39] LABS: BUN/Creatinine Ratio 29.9; Calcium 10.3 mg/dL (8.5-10.1)
[2020-07-30] MEDS: METOPROLOL TARTRATE 25 MG TAB PO SCH (21:45)
[2020-07-30 22:00] VITALS: BP 139/89
[2020-07-31] MEDS: D5W 5% 1,000 ML IV SCH ×4 (02:05→19:46)
[2020-07-31 05:00] VITALS: BP 129/83
[2020-07-31] MEDS: PIPERACILLIN-TAZOB 3.375GM 100 ML IV SCH ×3 (05:27→21:32)
[2020-07-31 05:49] LABS: Calcium 10.2 mg/dL (8.5-10.1)
[2020-07-31] MEDS: FREE WATER NG SCH ×3 (06:00→17:33)
[2020-07-31 06:01] LABS: Potassium 2.7 mmol/L (3.5-5.1)
[2020-07-31] MEDS: SUCRALFATE 1 GM TAB PO SCH ×2 (06:01→17:32)
[2020-07-31] MEDS: InsuLIN REG 1unit/0.01ml Soln (100units/ml) SC SCH ×4 (06:02→21:56)
[2020-07-31] MEDS: INSULIN LANTUS (GLARGINE) 1 /0.01ml (100units/ml) SC SCH (06:02)
[2020-07-31] MEDS: ACCU-CHEK COMFORT CURVE STRIP VI SCH ×4 (06:03→21:56)
[2020-07-31] MEDS ORDERED: POTASSIUM CHL 20MEQ/100ML 100 ML IV ONE (06:45)
[2020-07-31] MEDS ORDERED: POTASSIUM CHL 20 Meq TABLET PO ONE (06:45)
[2020-07-31 08:33] VITALS: BP 123/70
[2020-07-31] MEDS ORDERED: POTASSIUM EFFERVESENT TAB 25 MEQ GT ONE (08:45)
[2020-07-31] MEDS ORDERED: amLODIPine BESYLATE 5 MG TAB PO SCH (10:00)
[2020-07-31] MEDS: METOPROLOL TARTRATE 25 MG TAB PO SCH ×2 (10:45→22:36)
[2020-07-31] MEDS: PANTOPRAZOLE 40 MG/10 ML VIAL INJ IV SCH (10:45)
[2020-07-31] MEDS: CYANOCOBALAMIN 500 MCG TAB PO SCH (10:47)
[2020-07-31 13:03] VITALS: BP 103/72
[2020-07-31 16:33] VITALS: BP 123/70
[2020-07-31 22:00] VITALS: BP 122/58
[2020-07-31] MEDS: ACETAMINOPHEN 325 MG TAB PO PRN (23:09)
[2020-08-01] MEDS: FREE WATER NG SCH ×4 (00:18→17:31)
[2020-08-01] MEDS: D5W 5% 1,000 ML IV SCH ×3 (04:45→17:59)
[2020-08-01 05:00] VITALS: BP 114/85
[2020-08-01] MEDS: PIPERACILLIN-TAZOB 3.375GM 100 ML IV SCH ×3 (05:39→22:32)
[2020-08-01] MEDS: ACCU-CHEK COMFORT CURVE STRIP VI SCH ×4 (06:46→22:00)
[2020-08-01] MEDS: InsuLIN REG 1unit/0.01ml Soln (100units/ml) SC SCH ×4 (06:46→22:00)
[2020-08-01] MEDS: SUCRALFATE 1 GM TAB PO SCH ×2 (06:46→17:58)
[2020-08-01] MEDS: INSULIN LANTUS (GLARGINE) 1 /0.01ml (100units/ml) SC SCH (06:47)
[2020-08-01 08:03] LABS: Albumin 1.5 g/dL (3.4-5.0); BUN/Creatinine Ratio 29.5; Bilirubin, Total 0.5 mg/dL (0.2-1.0); Calcium 10.5 mg/dL (8.5-10.1); Magnesium 1.9 mg/dL (1.6-2.6); Phosphorus 2.8 mg/dL (2.5-4.90); Total Protein 4.8 g/dL (6.4-8.2)
[2020-08-01 09:00] VITALS: BP 101/67
[2020-08-01] MEDS: METOPROLOL TARTRATE 25 MG TAB PO SCH ×2 (09:03→22:32)
[2020-08-01] MEDS: PANTOPRAZOLE 40 MG/10 ML VIAL INJ IV SCH (10:27)
[2020-08-01] MEDS: CYANOCOBALAMIN 500 MCG TAB PO SCH (10:27)
[2020-08-01 11:57] LABS: Basophils # (auto) 0 10 ^3/uL (0-0.2); Eosinophils # (auto) 0 10 ^3/uL (0-0.8); Eosinophils % (auto) 0.1 % (0.0-7.0); Hematocrit 33.9 % (36.0-46.0); Lymphocytes # (auto) 0.5 10 ^3/uL (0.4-5.4); Mean Corpuscular Hemoglobin 27.2 pg (28.0-32.0); Mean Corpuscular Hgb Conc. 32.4 g/dL (32.0-36.0); Mean Corpuscular Volume 83.8 fL (80.0-100.0); Monocytes # (auto) 0.3 10 ^3/uL (0-1.3); Monocytes % (auto) 4.8 % (0.0-12.0); Neutrophils # (auto) 4.8 10 ^3/uL (1.6-8.6); Neutrophils % (auto) 86.1 % (37.0-80.0); Nucleated Red Blood Cells % 0.2 %; Platelet Count (auto) 81 10^3/uL (140-450); Red Blood Cells 4.04 10^6/uL (4.0-5.20); Red Cell Distribution Width 17.9 % (11.8-14.3); White Blood Cell 5.6 10^3/uL (4.4-10.8)
[2020-08-01 12:12] LABS: INR 1.7 (0.9-1.15)
[2020-08-01 13:00] VITALS: BP 101/67
[2020-08-01 16:53] VITALS: BP 108/68
[2020-08-01 21:54] VITALS: BP 109/65
[2020-08-01 22:08] LABS: Basophils # (auto) 0 10 ^3/uL (0-0.2); Basophils % (auto) 0.1 % (0.0-2.0); Eosinophils # (auto) 0 10 ^3/uL (0-0.8); Eosinophils % (auto) 0.1 % (0.0-7.0); Hematocrit 33.2 % (36.0-46.0); Hemoglobin 10.8 g/dL (12.2-16.2); Lymphocytes # (auto) 0.4 10 ^3/uL (0.4-5.4); Mean Corpuscular Hemoglobin 27.2 pg (28.0-32.0); Mean Corpuscular Hgb Conc. 32.6 g/dL (32.0-36.0); Mean Corpuscular Volume 83.5 fL (80.0-100.0); Monocytes # (auto) 0.2 10 ^3/uL (0-1.3); Monocytes % (auto) 4.8 % (0.0-12.0); Neutrophils # (auto) 4.1 10 ^3/uL (1.6-8.6); Nucleated Red Blood Cells % 0.1 %; Platelet Count (auto) 80 10^3/uL (140-450); Red Blood Cells 3.97 10^6/uL (4.0-5.20); White Blood Cell 4.8 10^3/uL (4.4-10.8)
[2020-08-01 22:30] LABS: Albumin 1.4 g/dL (3.4-5.0); Calcium 10.9 mg/dL (8.5-10.1)
[2020-08-01 22:34] LABS: Bilirubin, Total 0.4 mg/dL (0.2-1.0); Total Protein 4.7 g/dL (6.4-8.2)
[2020-08-01] MEDS: ACETAMINOPHEN 325 MG TAB PO PRN (22:34)
[2020-08-01 22:38] LABS: BUN/Creatinine Ratio 28.9
[2020-08-01 22:39] LABS: Potassium 2.7 mmol/L (3.5-5.1)
[2020-08-02] MEDS: D5W 5% 1,000 ML IV SCH ×3 (00:44→20:42)
[2020-08-02] MEDS ORDERED: POTASSIUM EFFERVESENT TAB 25 MEQ NG ONE (02:45)
[2020-08-02 05:00] VITALS: BP 99/59
[2020-08-02] MEDS: FREE WATER NG SCH ×4 (05:59→15:33)
[2020-08-02] MEDS: PIPERACILLIN-TAZOB 3.375GM 100 ML IV SCH ×3 (05:59→21:36)
[2020-08-02] MEDS: SUCRALFATE 1 GM TAB PO SCH ×2 (06:00→15:32)
[2020-08-02] MEDS: InsuLIN REG 1unit/0.01ml Soln (100units/ml) SC SCH ×4 (06:58→21:41)
[2020-08-02] MEDS: ACCU-CHEK COMFORT CURVE STRIP VI SCH ×4 (06:58→21:41)
[2020-08-02] MEDS: INSULIN LANTUS (GLARGINE) 1 /0.01ml (100units/ml) SC SCH (06:59)
[2020-08-02 09:00] VITALS: BP 107/75
[2020-08-02] MEDS ORDERED: Jevity 1.2 Cal/Fiber 1 Liter GT SCH (12:15)
[2020-08-02 13:00] VITALS: BP 111/68
[2020-08-02 13:23] LABS: BUN/Creatinine Ratio 24.4; Calcium 10.8 mg/dL (8.5-10.1); Magnesium 1.8 mg/dL (1.6-2.6)
[2020-08-02 13:27] LABS: Potassium 2.7 mmol/L (3.5-5.1)
[2020-08-02] MEDS: PANTOPRAZOLE 40 MG/10 ML VIAL INJ IV SCH (13:36)
[2020-08-02] MEDS: CYANOCOBALAMIN 500 MCG TAB PO SCH (13:36)
[2020-08-02] MEDS ORDERED: POTASSIUM CHLORIDE 40 MEQ, LIDOCAINE 1% (LOCAL ANESTH.) 4 ML in SODIUM CHL 0.9% 250 ML IV ONE (15:00)
[2020-08-02] MEDS ORDERED: POTASSIUM EFFERVESENT TAB 25 MEQ GT ONE (15:00)
[2020-08-02] MEDS: MAGNESIUM SULFATE 1GM/100ML 100 ML IV SCH ×2 (15:31→22:40)
[2020-08-02] MEDS: POTASSIUM CHL 20MEQ/100ML 100 ML IV SCH ×3 (15:31→20:11)
[2020-08-02 17:00] VITALS: BP 130/76
[2020-08-02 22:00] VITALS: BP 115/73
[2020-08-02] MEDS ORDERED: MAGNESIUM SULFATE 1GM/100ML 100 ML IV ONE (22:38)
[2020-08-03] MEDS ORDERED: POTASSIUM CHL 20MEQ/100ML 100 ML IV ONE (00:28)
[2020-08-03] MEDS: PIPERACILLIN-TAZOB 3.375GM 100 ML IV SCH (05:35)
[2020-08-03] MEDS: FREE WATER NG SCH ×4 (05:35→18:58)
[2020-08-03 05:48] VITALS: BP 120/62
[2020-08-03] MEDS: SUCRALFATE 1 GM TAB PO SCH ×2 (06:21→16:59)
[2020-08-03] MEDS: ACCU-CHEK COMFORT CURVE STRIP VI SCH ×4 (06:21→21:29)
[2020-08-03] MEDS: InsuLIN REG 1unit/0.01ml Soln (100units/ml) SC SCH ×4 (06:21→21:29)
[2020-08-03 07:18] LABS: Basophils # (auto) 0 10 ^3/uL (0-0.2); Eosinophils # (auto) 0 10 ^3/uL (0-0.8); Eosinophils % (auto) 0.1 % (0.0-7.0); Hematocrit 33.5 % (36.0-46.0); Hemoglobin 11.1 g/dL (12.2-16.2); Lymphocytes # (auto) 0.4 10 ^3/uL (0.4-5.4); Lymphocytes % (auto) 11.7 % (10.0-50.0); Mean Corpuscular Hemoglobin 27.4 pg (28.0-32.0); Mean Corpuscular Hgb Conc. 33.1 g/dL (32.0-36.0); Mean Corpuscular Volume 82.7 fL (80.0-100.0); Monocytes # (auto) 0.2 10 ^3/uL (0-1.3); Monocytes % (auto) 5.4 % (0.0-12.0); Neutrophils # (auto) 2.7 10 ^3/uL (1.6-8.6); Neutrophils % (auto) 82.8 % (37.0-80.0); Platelet Count (auto) 79 10^3/uL (140-450); Red Blood Cells 4.05 10^6/uL (4.0-5.20); Red Cell Distribution Width 17.7 % (11.8-14.3); White Blood Cell 3.3 10^3/uL (4.4-10.8)
[2020-08-03 07:36] LABS: Albumin 1.4 g/dL (3.4-5.0); Calcium 10.8 mg/dL (8.5-10.1); Potassium 3.3 mmol/L (3.5-5.1)
[2020-08-03 07:42] LABS: BUN/Creatinine Ratio 23.8; Bilirubin, Total 0.4 mg/dL (0.2-1.0); Total Protein 4.8 g/dL (6.4-8.2)
[2020-08-03 09:01] VITALS: BP 117/73
[2020-08-03] MEDS: PANTOPRAZOLE 40 MG/10 ML VIAL INJ IV SCH (09:56)
[2020-08-03] MEDS: CYANOCOBALAMIN 500 MCG TAB PO SCH (09:56)
[2020-08-03 13:00] VITALS: BP 106/74
[2020-08-03] MEDS ORDERED: metroNIDAZOLE 500MG/100ML 100 ML IV ONE (14:00)
[2020-08-03] MEDS ORDERED: PHYTONADIONE (VIT K)10 MG/ML 1ML VIAL SUBCUT ONE (14:45)
[2020-08-03 15:54] LABS: INR 1.03 (0.9-1.15); Partial Thromboplastin Time 38.5 sec (23.0-31.2)
[2020-08-03] MEDS: metroNIDAZOLE 500MG/100ML 100 ML IV SCH ×2 (16:58→21:28)
[2020-08-03] MEDS: D5W/SOD CHL 0.45%/KCL 20MEQ 1,000 ML IV SCH (16:58)
[2020-08-03 17:00] VITALS: BP 127/88
[2020-08-03 22:00] VITALS: BP 124/72
[2020-08-04] MEDS: FREE WATER NG SCH ×4 (00:11→18:00)
[2020-08-04] MEDS: D5W/SOD CHL 0.45%/KCL 20MEQ 1,000 ML IV SCH ×2 (03:20→17:08)
[2020-08-04 05:00] VITALS: BP 143/83
[2020-08-04] MEDS: metroNIDAZOLE 500MG/100ML 100 ML IV SCH ×3 (05:59→21:55)
[2020-08-04] MEDS: SUCRALFATE 1 GM TAB PO SCH ×2 (06:00→17:00)
[2020-08-04] MEDS: InsuLIN REG 1unit/0.01ml Soln (100units/ml) SC SCH ×4 (06:01→21:59)
[2020-08-04] MEDS: ACCU-CHEK COMFORT CURVE STRIP VI SCH ×4 (06:01→21:59)
[2020-08-04 06:16] LABS: INR 0.95 (0.9-1.15); Partial Thromboplastin Time 33.6 sec (23.0-31.2)
[2020-08-04 06:20] LABS: Calcium 10.2 mg/dL (8.5-10.1)
[2020-08-04 06:23] LABS: BUN/Creatinine Ratio 25.3
[2020-08-04 09:00] VITALS: BP 108/73
[2020-08-04] MEDS: PANTOPRAZOLE 40 MG/10 ML VIAL INJ IV SCH (09:18)
[2020-08-04] MEDS ORDERED: levoFLOXacin 500MG 100 ML IV SCH (10:00)
[2020-08-04] MEDS: CYANOCOBALAMIN 500 MCG TAB PO SCH (10:00)
[2020-08-04] MEDS ORDERED: POTASSIUM CHLORIDE 20 MEQ, LIDOCAINE 1% (LOCAL ANESTH.) 2 ML in SODIUM CHL 0.9% 100 ML IV ONE (12:45)
[2020-08-04 13:00] VITALS: BP 122/72
[2020-08-04 16:38] LABS: Basophils # (auto) 0 10 ^3/uL (0-0.2); Basophils % (auto) 0.1 % (0.0-2.0); Eosinophils # (auto) 0 10 ^3/uL (0-0.8); Hematocrit 28.3 % (36.0-46.0); Hemoglobin 9.5 g/dL (12.2-16.2); Lymphocytes # (auto) 0.3 10 ^3/uL (0.4-5.4); Lymphocytes % (auto) 11.9 % (10.0-50.0); Mean Corpuscular Hemoglobin 27.4 pg (28.0-32.0); Mean Corpuscular Hgb Conc. 33.6 g/dL (32.0-36.0); Mean Corpuscular Volume 81.4 fL (80.0-100.0); Monocytes # (auto) 0.2 10 ^3/uL (0-1.3); Monocytes % (auto) 8.7 % (0.0-12.0); Neutrophils # (auto) 1.9 10 ^3/uL (1.6-8.6); Neutrophils % (auto) 79.3 % (37.0-80.0); Nucleated Red Blood Cells % 0.1 %; Platelet Count (auto) 72 10^3/uL (140-450); Red Blood Cells 3.47 10^6/uL (4.0-5.20); Red Cell Distribution Width 16.9 % (11.8-14.3); White Blood Cell 2.4 10^3/uL (4.4-10.8)
[2020-08-04 17:00] VITALS: BP 106/74
[2020-08-04 22:00] VITALS: BP 124/75
[2020-08-04] MEDS ORDERED: Jevity 1.2 Cal/Fiber 1 Liter GT SCH (22:00)
[2020-08-05] MEDS: D5W/SOD CHL 0.45%/KCL 20MEQ 1,000 ML IV SCH ×2 (02:07→16:32)
[2020-08-05 05:00] VITALS: BP 123/75
[2020-08-05] MEDS: metroNIDAZOLE 500MG/100ML 100 ML IV SCH ×3 (05:48→21:31)
[2020-08-05 06:35] LABS: Basophils # (auto) 0 10 ^3/uL (0-0.2); Basophils % (auto) 0.2 % (0.0-2.0); Eosinophils # (auto) 0 10 ^3/uL (0-0.8); Eosinophils % (auto) 0.1 % (0.0-7.0); Hematocrit 29.1 % (36.0-46.0); Hemoglobin 9.7 g/dL (12.2-16.2); Lymphocytes # (auto) 0.3 10 ^3/uL (0.4-5.4); Lymphocytes % (auto) 13.1 % (10.0-50.0); Mean Corpuscular Hemoglobin 27.4 pg (28.0-32.0); Mean Corpuscular Hgb Conc. 33.3 g/dL (32.0-36.0); Mean Corpuscular Volume 82.4 fL (80.0-100.0); Monocytes # (auto) 0.3 10 ^3/uL (0-1.3); Monocytes % (auto) 10.8 % (0.0-12.0); Neutrophils % (auto) 75.8 % (37.0-80.0); Nucleated Red Blood Cells % 0.3 %; Platelet Count (auto) 74 10^3/uL (140-450); Red Blood Cells 3.53 10^6/uL (4.0-5.20); Red Cell Distribution Width 17.3 % (11.8-14.3); White Blood Cell 2.6 10^3/uL (4.4-10.8)
[2020-08-05] MEDS: ACCU-CHEK COMFORT CURVE STRIP VI SCH ×4 (06:37→21:33)
[2020-08-05] MEDS: InsuLIN REG 1unit/0.01ml Soln (100units/ml) SC SCH ×4 (06:38→21:33)
[2020-08-05] MEDS: SUCRALFATE 1 GM TAB PO SCH ×2 (06:38→16:32)
[2020-08-05 07:01] LABS: BUN/Creatinine Ratio 23.2; Calcium 10.8 mg/dL (8.5-10.1); Potassium 3.4 mmol/L (3.5-5.1)
[2020-08-05 09:00] VITALS: BP_SYST 126; BP_SYST 99; BP_DIAS 55; BP_DIAS 81
[2020-08-05] MEDS: levoFLOXacin 250MG 50 ML IV SCH (09:03)
[2020-08-05] MEDS: PANTOPRAZOLE 40 MG/10 ML VIAL INJ IV SCH ×2 (09:04→21:31)
[2020-08-05] MEDS: CYANOCOBALAMIN 500 MCG TAB PO SCH (09:04)
[2020-08-05 13:00] VITALS: BP 126/81
[2020-08-05 17:18] VITALS: BP 118/58
[2020-08-05] MEDS: MORPHINE SULF INJ 2 MG/ML SYRINGE 1ML IV PRN (21:31)
[2020-08-05 22:00] VITALS: BP 111/79
[2020-08-06 05:00] VITALS: BP 118/73
[2020-08-06] MEDS: metroNIDAZOLE 500MG/100ML 100 ML IV SCH ×3 (05:47→22:02)
[2020-08-06 06:24] LABS: Potassium 3.4 mmol/L (3.5-5.1)
[2020-08-06 06:28] LABS: BUN/Creatinine Ratio 21.8; Calcium 10.5 mg/dL (8.5-10.1)
[2020-08-06] MEDS: ACCU-CHEK COMFORT CURVE STRIP VI SCH ×4 (06:48→22:03)
[2020-08-06] MEDS: InsuLIN REG 1unit/0.01ml Soln (100units/ml) SC SCH ×4 (06:48→22:00)
[2020-08-06] MEDS: SUCRALFATE 1 GM TAB PO SCH ×2 (06:48→17:00)
[2020-08-06] MEDS: D5W/SOD CHL 0.45%/KCL 20MEQ 1,000 ML IV SCH ×2 (06:51→22:03)
[2020-08-06 08:40] VITALS: BP 119/50
[2020-08-06] MEDS: CYANOCOBALAMIN 500 MCG TAB PO SCH (10:00)
[2020-08-06] MEDS: PANTOPRAZOLE 40 MG/10 ML VIAL INJ IV SCH ×2 (11:19→22:03)
[2020-08-06] MEDS: levoFLOXacin 250MG 50 ML IV SCH (11:19)
[2020-08-06 12:43] VITALS: BP 114/60
[2020-08-06 16:37] VITALS: BP 109/64
[2020-08-06 17:46] LABS: Basophils # (auto) 0 10 ^3/uL (0-0.2); Eosinophils # (auto) 0 10 ^3/uL (0-0.8); Lymphocytes # (auto) 0.3 10 ^3/uL (0.4-5.4); Mean Corpuscular Hemoglobin 26.9 pg (28.0-32.0); Monocytes # (auto) 0.2 10 ^3/uL (0-1.3); White Blood Cell 2.3 10^3/uL (4.4-10.8)
[2020-08-06 17:49] LABS: Basophils % (auto) 0.1 % (0.0-2.0); Hematocrit 26.2 % (36.0-46.0); Hemoglobin 8.6 g/dL (12.2-16.2); Lymphocytes % (auto) 10.9 % (10.0-50.0); Mean Corpuscular Hgb Conc. 32.8 g/dL (32.0-36.0); Monocytes % (auto) 8.5 % (0.0-12.0); Neutrophils # (auto) 1.9 10 ^3/uL (1.6-8.6); Neutrophils % (auto) 80.5 % (37.0-80.0); Platelet Count (auto) 75 10^3/uL (140-450); Red Cell Distribution Width 17.7 % (11.8-14.3)
[2020-08-06 22:00] VITALS: BP 106/60
[2020-08-07 04:50] VITALS: BP 103/72
[2020-08-07] MEDS: metroNIDAZOLE 500MG/100ML 100 ML IV SCH ×3 (05:31→22:26)
[2020-08-07 06:22] LABS: Basophils # (auto) 0 10 ^3/uL (0-0.2); Basophils % (auto) 0.2 % (0.0-2.0); Eosinophils # (auto) 0 10 ^3/uL (0-0.8); Hemoglobin 9.2 g/dL (12.2-16.2); Lymphocytes # (auto) 0.4 10 ^3/uL (0.4-5.4); Lymphocytes % (auto) 14.3 % (10.0-50.0); Mean Corpuscular Hemoglobin 27.2 pg (28.0-32.0); Mean Corpuscular Hgb Conc. 32.7 g/dL (32.0-36.0); Mean Corpuscular Volume 83.1 fL (80.0-100.0); Monocytes # (auto) 0.2 10 ^3/uL (0-1.3); Monocytes % (auto) 7.8 % (0.0-12.0); Neutrophils # (auto) 2.4 10 ^3/uL (1.6-8.6); Neutrophils % (auto) 77.7 % (37.0-80.0); Nucleated Red Blood Cells % 0.1 %; Platelet Count (auto) 78 10^3/uL (140-450); Red Blood Cells 3.37 10^6/uL (4.0-5.20); Red Cell Distribution Width 17.7 % (11.8-14.3); White Blood Cell 3.1 10^3/uL (4.4-10.8)
[2020-08-07 06:25] LABS: Albumin 1.4 g/dL (3.4-5.0); Potassium 3.5 mmol/L (3.5-5.1)
[2020-08-07 06:34] LABS: BUN/Creatinine Ratio 15.4; Bilirubin, Total 0.4 mg/dL (0.2-1.0); Total Protein 4.4 g/dL (6.4-8.2)
[2020-08-07] MEDS: InsuLIN REG 1unit/0.01ml Soln (100units/ml) SC SCH ×4 (06:38→22:00)
[2020-08-07] MEDS: ACCU-CHEK COMFORT CURVE STRIP VI SCH ×4 (06:38→22:13)
[2020-08-07] MEDS: SUCRALFATE 1 GM TAB PO SCH ×2 (06:39→17:00)
[2020-08-07 09:18] VITALS: BP 125/78
[2020-08-07] MEDS: CYANOCOBALAMIN 500 MCG TAB PO SCH (10:00)
[2020-08-07] MEDS: PANTOPRAZOLE 40 MG/10 ML VIAL INJ IV SCH ×2 (10:56→22:26)
[2020-08-07] MEDS: levoFLOXacin 250MG 50 ML IV SCH (10:57)
[2020-08-07] MEDS: MORPHINE SULF INJ 2 MG/ML SYRINGE 1ML IV PRN ×2 (11:03→18:16)
[2020-08-07] MEDS: D5W/SOD CHL 0.45%/KCL 20MEQ 1,000 ML IV SCH ×2 (11:20→18:17)
[2020-08-07 12:36] VITALS: BP 104/78
[2020-08-07 16:42] VITALS: BP 111/72
[2020-08-07] MEDS ORDERED: GOLYTELY 4L KIT PO ONE (20:00)
[2020-08-07 22:00] VITALS: BP 109/79
[2020-08-07] MEDS: CINACALCET HCL 30 MG PO SCH (22:27)
[2020-08-08 05:00] VITALS: BP 131/81
[2020-08-08 05:36] LABS: Basophils # (auto) 0 10 ^3/uL (0-0.2); Basophils % (auto) 0.5 % (0.0-2.0); Eosinophils # (auto) 0 10 ^3/uL (0-0.8); Hematocrit 27.1 % (36.0-46.0); Lymphocytes # (auto) 0.4 10 ^3/uL (0.4-5.4); Lymphocytes % (auto) 13.8 % (10.0-50.0); Mean Corpuscular Hemoglobin 27.3 pg (28.0-32.0); Mean Corpuscular Hgb Conc. 33.1 g/dL (32.0-36.0); Mean Corpuscular Volume 82.4 fL (80.0-100.0); Monocytes # (auto) 0.1 10 ^3/uL (0-1.3); Monocytes % (auto) 5.4 % (0.0-12.0); Neutrophils # (auto) 2.1 10 ^3/uL (1.6-8.6); Neutrophils % (auto) 80.3 % (37.0-80.0); Nucleated Red Blood Cells % 0.1 %; Platelet Count (auto) 78 10^3/uL (140-450); Red Blood Cells 3.28 10^6/uL (4.0-5.20); Red Cell Distribution Width 17.7 % (11.8-14.3); White Blood Cell 2.6 10^3/uL (4.4-10.8)
[2020-08-08 05:56] LABS: BUN/Creatinine Ratio 17.6; Calcium 11.4 mg/dL (8.5-10.1); Potassium 3.8 mmol/L (3.5-5.1)
[2020-08-08 06:39] LABS: INR 0.98 (0.9-1.15); Partial Thromboplastin Time 29.4 sec (23.0-31.2)
[2020-08-08] MEDS: InsuLIN REG 1unit/0.01ml Soln (100units/ml) SC SCH ×4 (07:00→22:00)
[2020-08-08] MEDS: SUCRALFATE 1 GM TAB PO SCH (07:00)
[2020-08-08] MEDS: ACCU-CHEK COMFORT CURVE STRIP VI SCH ×4 (07:03→22:04)
[2020-08-08] MEDS: metroNIDAZOLE 500MG/100ML 100 ML IV SCH ×3 (07:04→22:03)
[2020-08-08 08:24] LABS: Urine Amorphous Crystal FEW /hpf (None Seen); Urine Bacteria FEW /hpf (None Seen); Urine Blood 1+ /uL (Negative); Urine Budding Yeast OCCASIONAL /hpf (None Seen); Urine Hyaline Cast FEW /lpf (0 - 2); Urine Mucus FEW (None Seen); Urine Specific Gravity 1.012 (1.001-1.035); Urine WBC 4 /hpf (0 - 5)
[2020-08-08 09:32] VITALS: BP 121/82
[2020-08-08] MEDS: CYANOCOBALAMIN 500 MCG TAB PO SCH (10:00)
[2020-08-08] MEDS: PANTOPRAZOLE 40 MG/10 ML VIAL INJ IV SCH ×2 (11:11→22:03)
[2020-08-08] MEDS: levoFLOXacin 250MG 50 ML IV SCH (11:11)
[2020-08-08] MEDS: MORPHINE SULF INJ 2 MG/ML SYRINGE 1ML IV PRN (11:12)
[2020-08-08] MEDS ORDERED: PPN PER PHARMACY 0 ML IV SCH (12:30)
[2020-08-08 12:56] LABS: Albumin 1.4 g/dL (3.4-5.0); Bilirubin, Direct 0.1 mg/dL (0-0.2)
[2020-08-08 13:00] LABS: Bilirubin, Total 0.3 mg/dL (0.2-1.0); Pre Albumin 13.2 mg/dL (20.0-40.0); Total Protein 4.5 g/dL (6.4-8.2)
[2020-08-08 13:32] VITALS: BP 113/92
[2020-08-08 14:12] LABS: Magnesium 1.9 mg/dL (1.6-2.6); Phosphorus 2.3 mg/dL (2.5-4.90)
[2020-08-08] MEDS ORDERED: FUROSEMIDE 20 MG/2 ML VIAL IV ONE (14:15)
[2020-08-08] MEDS: SODIUM BICARBONATE 50ML VIAL 50 ML in SOD CHL 0.45% 1,000 ML IV SCH (16:43)
[2020-08-08 16:47] VITALS: BP 110/80
[2020-08-08] MEDS: SUCRALFATE 1 GM/10 ML ORAL SUSP PO SCH (17:00)
[2020-08-08] MEDS ORDERED: POTASSIUM PHOSP 22MEQ(15MMOLE) in NS 100 ML IV ONE (17:00)
[2020-08-08] MEDS ORDERED: DEXTROSE (50%) 50ML SYRG IV PRN (17:00)
[2020-08-08] MEDS ORDERED: CLINIMIX PER PHARMACY IV NR (20:00)
[2020-08-08 22:00] VITALS: BP 113/74
[2020-08-08] MEDS ORDERED: MAGNESIUM CITRATE SOLUTION 300 ML BTL NG ONE (22:00)
[2020-08-08] MEDS: CINACALCET HCL 30 MG PO SCH (22:04)
[2020-08-09] MEDS ORDERED: DEXTROSE (50%) 50ML SYRG IV SCH
[2020-08-09 05:00] VITALS: BP 124/77
[2020-08-09] MEDS ORDERED: ONDANSETRON HCL 4 MG/2 ML VIAL IV PRN (05:00)
[2020-08-09] MEDS ORDERED: MAGNESIUM CITRATE SOLUTION 300 ML BTL PO ONE (06:00)
[2020-08-09] MEDS: InsuLIN REG 1unit/0.01ml Soln (100units/ml) SC SCH ×4 (06:00→17:13)
[2020-08-09] MEDS: ACCU-CHEK COMFORT CURVE STRIP VI SCH ×4 (06:07→17:13)
[2020-08-09] MEDS: metroNIDAZOLE 500MG/100ML 100 ML IV SCH ×3 (06:08→22:09)
[2020-08-09 06:54] LABS: Basophils # (auto) 0 10 ^3/uL (0-0.2); Basophils % (auto) 0.1 % (0.0-2.0); Eosinophils # (auto) 0 10 ^3/uL (0-0.8); Hematocrit 25.4 % (36.0-46.0); Hemoglobin 8.4 g/dL (12.2-16.2); Lymphocytes # (auto) 0.6 10 ^3/uL (0.4-5.4); Lymphocytes % (auto) 17.6 % (10.0-50.0); Mean Corpuscular Volume 81.8 fL (80.0-100.0); Monocytes # (auto) 0.2 10 ^3/uL (0-1.3); Neutrophils # (auto) 2.8 10 ^3/uL (1.6-8.6); Neutrophils % (auto) 77.3 % (37.0-80.0); Platelet Count (auto) 82 10^3/uL (140-450); Red Blood Cells 3.11 10^6/uL (4.0-5.20); Red Cell Distribution Width 17.9 % (11.8-14.3); White Blood Cell 3.6 10^3/uL (4.4-10.8)
[2020-08-09] MEDS: SUCRALFATE 1 GM/10 ML ORAL SUSP PO SCH ×2 (07:00→16:35)
[2020-08-09 07:08] LABS: INR 1.04 (0.9-1.15); Partial Thromboplastin Time 28.7 sec (23.0-31.2)
[2020-08-09 07:09] LABS: Albumin 1.5 g/dL (3.4-5.0); Calcium 10.8 mg/dL (8.5-10.1); Magnesium 2.1 mg/dL (1.6-2.6); Potassium 3.1 mmol/L (3.5-5.1)
[2020-08-09 07:14] LABS: BUN/Creatinine Ratio 17.1; Bilirubin, Total 0.4 mg/dL (0.2-1.0); Phosphorus 2.9 mg/dL (2.5-4.90); Total Protein 4.5 g/dL (6.4-8.2)
[2020-08-09] MEDS ORDERED: POTASSIUM CHL 20MEQ/100ML 100 ML IV ONE (08:30)
[2020-08-09] MEDS: SODIUM BICARBONATE 50ML VIAL 50 ML in SOD CHL 0.45% 1,000 ML IV SCH (08:49)
[2020-08-09 09:00] VITALS: BP 130/98
[2020-08-09] MEDS: CYANOCOBALAMIN 500 MCG TAB PO SCH (09:39)
[2020-08-09] MEDS: PANTOPRAZOLE 40 MG/10 ML VIAL INJ IV SCH ×2 (09:39→22:09)
[2020-08-09] MEDS: levoFLOXacin 250MG 50 ML IV SCH (09:39)
[2020-08-09] MEDS ORDERED: POTASSIUM PHOSP 22MEQ(15MMOLE) in NS 100 ML IV ONE (10:30)
[2020-08-09] MEDS ORDERED: diphenhdrAMINE HCL 50 MG/1 ML VL ONE (12:53)
[2020-08-09] MEDS ORDERED: SODIUM CHLORIDE LOCK 10 ML ONE (12:53)
[2020-08-09 13:00] VITALS: BP 124/80
[2020-08-09] MEDS: fentaNYL CITRATE 100 MCG/2 ML VL ONE ×3 (14:20→14:35)
[2020-08-09] MEDS: MIDAZOLAM HCL 5 MG/ML-1ML VIAL ONE ×3 (14:20→14:35)
[2020-08-09 17:00] VITALS: BP 155/76
[2020-08-09] MEDS ORDERED: PPN PER PHARMACY IV NR ×8 (20:00)
[2020-08-09 21:59] VITALS: BP 107/57
[2020-08-09] MEDS: CINACALCET HYDROCHLORIDE 30 MG TAB PO SCH (22:09)
[2020-08-09] MEDS: HYDROCORTISONE SOD SUCC 100 MG/2ML INJ VIAL IV SCH (22:54)
[2020-08-10] MEDS: ACCU-CHEK COMFORT CURVE STRIP VI SCH ×3 (00:17→12:22)
[2020-08-10 05:00] VITALS: BP 121/73
[2020-08-10] MEDS: metroNIDAZOLE 500MG/100ML 100 ML IV SCH ×3 (06:05→21:31)
[2020-08-10] MEDS: InsuLIN REG 1unit/0.01ml Soln (100units/ml) SC SCH ×3 (06:08→12:00)
[2020-08-10] MEDS: SODIUM BICARBONATE 50ML VIAL 50 ML in SOD CHL 0.45% 1,000 ML IV SCH (06:12)
[2020-08-10] MEDS: SUCRALFATE 1 GM/10 ML ORAL SUSP PO SCH ×2 (06:34→17:56)
[2020-08-10 09:00] VITALS: BP 131/71
[2020-08-10] MEDS: CYANOCOBALAMIN 500 MCG TAB PO SCH (09:04)
[2020-08-10] MEDS: levoFLOXacin 250MG 50 ML IV SCH (09:21)
[2020-08-10] MEDS: PANTOPRAZOLE 40 MG/10 ML VIAL INJ IV SCH ×2 (09:22→21:31)
[2020-08-10 09:49] LABS: Albumin 1.4 g/dL (3.4-5.0); Calcium 10.9 mg/dL (8.5-10.1); Magnesium 2.8 mg/dL (1.6-2.6)
[2020-08-10 09:53] LABS: Bilirubin, Total 0.3 mg/dL (0.2-1.0); Phosphorus 3.6 mg/dL (2.5-4.90); Total Protein 4.5 g/dL (6.4-8.2)
[2020-08-10 10:00] LABS: BUN/Creatinine Ratio 19.6
[2020-08-10] MEDS: HYDROCORTISONE SOD SUCC 100 MG/2ML INJ VIAL IV SCH ×2 (10:05→21:32)
[2020-08-10] MEDS ORDERED: Jevity 1.2 Cal/Fiber 1 Liter GT SCH (12:30)
[2020-08-10] MEDS ORDERED: POTASSIUM EFFERVESENT TAB 25 MEQ GT ONE (12:30)
[2020-08-10] MEDS ORDERED: FUROSEMIDE 20 MG/2 ML VIAL IV ONE (12:30)
[2020-08-10 12:43] VITALS: BP 104/59
[2020-08-10] MEDS: POTASSIUM CHL 20MEQ/100ML 100 ML IV SCH ×2 (13:14→16:01)
[2020-08-10 13:27] VITALS: BP 110/81
[2020-08-10 16:38] VITALS: BP 115/73
[2020-08-10] MEDS ORDERED: PPN PER PHARMACY IV NR ×7 (20:00)
[2020-08-10] MEDS: CINACALCET HYDROCHLORIDE 30 MG TAB PO SCH (21:32)
[2020-08-10 23:28] VITALS: BP 102/72
[2020-08-11 05:18] VITALS: BP 108/74
[2020-08-11] MEDS: metroNIDAZOLE 500MG/100ML 100 ML IV SCH ×2 (05:37→13:18)
[2020-08-11] MEDS: SUCRALFATE 1 GM/10 ML ORAL SUSP PO SCH ×2 (05:38→16:30)
[2020-08-11 09:00] VITALS: BP 130/85
[2020-08-11] MEDS: CYANOCOBALAMIN 500 MCG TAB PO SCH (10:00)
[2020-08-11] MEDS: levoFLOXacin 250MG 50 ML IV SCH (11:16)
[2020-08-11] MEDS: HYDROCORTISONE SOD SUCC 100 MG/2ML INJ VIAL IV SCH (11:17)
[2020-08-11] MEDS: PANTOPRAZOLE 40 MG/10 ML VIAL INJ IV SCH (11:17)
[2020-08-11 13:00] VITALS: BP 115/87
[2020-08-11 13:38] VITALS: BP 115/87
[2020-08-11 17:00] VITALS: BP 103/70
== END 2020-08-11 17:40 | disposition hospice, home (50) | DRG 190 ==
LOC: ER 18:31 → EDBD 18:31 → TELE 18:32 → TELE-EAST 07-29 01:00 → TELE-WESTW 07-29 06:04
PROVIDERS: ADMIT Internal Medicine; ATTEND Internal Medicine
PROC: 0DBL8ZX Excision of Transverse Colon, Via Natural or Artificial Opening Endoscopic, Diagnostic (ICD-10-PCS; 2020-08-09)
PROC: 0DBM8ZX Excision of Descending Colon, Via Natural or Artificial Opening Endoscopic, Diagnostic (ICD-10-PCS; principal; 2020-08-09 14:10)
DX: I21.4 Non-ST elevation (NSTEMI) myocardial infarction (principal); J18.9 Pneumonia, unspecified organism; J96.01 Acute respiratory failure with hypoxia; N17.0 Acute kidney failure with tubular necrosis; G92 Toxic encephalopathy; E87.0 Hyperosmolality and hypernatremia; D69.6 Thrombocytopenia, unspecified; G35 Multiple sclerosis; H54.61 Unqualified visual loss, right eye, normal vision left eye; K21.9 Gastro-esophageal reflux disease without esophagitis; J98.11 Atelectasis; E87.6 Hypokalemia; Z51.5 Encounter for palliative care; Z66 Do not resuscitate; D35.1 Benign neoplasm of parathyroid gland; E78.5 Hyperlipidemia, unspecified; E87.2 Acidosis; E86.0 Dehydration; D72.829 Elevated white blood cell count, unspecified; E03.9 Hypothyroidism, unspecified; E87.8 Other disorders of electrolyte and fluid balance, not elsewhere classified; I24.8 Other forms of acute ischemic heart disease; I25.10 Atherosclerotic heart disease of native coronary artery without angina pectoris; I42.2 Other hypertrophic cardiomyopathy; K55.9 Vascular disorder of intestine, unspecified; K57.90 Diverticulosis of intestine, part unspecified, without perforation or abscess without bleeding; K63.3 Ulcer of intestine; K82.8 Other specified diseases of gallbladder; Z20.828 Contact with and (suspected) exposure to other viral communicable diseases; Z74.01 Bed confinement status; Z79.02 Long term (current) use of antithrombotics/antiplatelets; Z82.3 Family history of stroke; Z86.73 Personal history of transient ischemic attack (TIA), and cerebral infarction without residual deficits; E21.0 Primary hyperparathyroidism; I12.9 Hypertensive chronic kidney disease with stage 1 through stage 4 chronic kidney disease, or unspecified chronic kidney disease; E11.22 Type 2 diabetes mellitus with diabetic chronic kidney disease; N18.9 Chronic kidney disease, unspecified
CPT/HCPCS: 36415; 71045; 74176; 80048; 80053; 80076; 81001; 82040; 82270; 82378; 82962; 83605; 83615; 83735; 83880; 84100; 84478; 84484; 85025; 85610; 85730; 86850; 86900; 86901; 87040; 87081; 87426; 87493; 93005; 97110; 97530; C9113; G0378; J0696; J1815; J1956; J2001; J2250; J2405; J2543; J3430; J3480; J3490; J7042